=== PATIENT | male | born 1985 | race Hispanic/Latino ===

== ENCOUNTER 2016-12-13 19:50 | Inpatient (IN) | payer OTHER ==
[~2016-12-13 19:50] MED LIST: ISOVUE-370 76%-LOCM 1 ML ONE
[2016-12-13 20:06] LABS: Hematocrit 48.4 % (42.0-52.0); Mean Platelet Volume 8.1 fL (7.4-10.4); Red Blood Cell (RBC) Count 4.77 mill/uL (4.70-6.10); White Blood Cell (WBC) Count 26.5 thou/uL (4.8-10.8)
[2016-12-13 20:10] LABS: Bilirubin Negative (Negative); Blood, Urine Moderate (Negative); Glucose, Urine (Dipstick) Negative (Negative); Ketone, Urine Negative (Negative); Nitrite Negative (Negative); Protein, Urine (Dipstick) 100 mg/dL (Neg-Trace); Urobilinogen 0.2 mg/dL (0.2-1.0)
[2016-12-13 20:11] LABS: PTT 26.4 SEC (22.9-36.1); Prothrombin Time 14.1 SEC (12.0-14.7)
[2016-12-13 20:13] LABS: Bacteria/HPF None Seen HPF (None Seen); Hyaline Casts/LPF 4-6 HYALINE CAST LPF (0-3 Hyaline); Squamous Epithelial 0-3 HPF (0-3)
[2016-12-13 20:18] LABS: ALT (SGPT) 55 U/L (8-55); AST (SGOT) 41 U/L (5-34); Alkaline Phosphatase 135 U/L (40-150); Anion Gap 12 mmol/L (10-20); BUN (Urea Nitrogen) 10 mg/dL (8.9-20.6); Bilirubin, Total 0.3 mg/dL (0.2-1.2); Calc. Creatinine Clearance 0 mL/min (70-130); Calcium 8.5 mg/dL (7.8-10.44); Carbon Dioxide 22 mmol/L (22-29); Chloride 107 mmol/L (98-107); Estimated GFR-MDRD 76; Globulin 3.3 g/dL (2.4-3.5); Protein, Total 7.2 g/dL (6.0-8.3)
[2016-12-13 20:24] LABS: Band 14 % (5-11); Neutrophil 73 % (42-75)
[2016-12-13 20:24] LABS: Renal Epithelial None Seen HPF (0-3); Transitional Epithelial NONE SEEN HPF (0-3)
[2016-12-13] MEDS ORDERED: Lidocaine 1% (PF) 30 ML VIAL ONE (20:41)
[2016-12-13] MEDS ORDERED: Propofol 1,000 MG/100 ML VIAL IV ONE (21:17)
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
[2016-12-13] MEDS ORDERED: Dextrose 5% in Water 1,000 ML IV PRN (21:28)
[2016-12-13] MEDS ORDERED: Ondansetron HCl/PF 4 MG/2 ML Vial IVP PRN (21:28)
[2016-12-13] MEDS ORDERED: Promethazine HCl 25 MG/ML VIAL IM PRN (21:28)
[2016-12-13] MEDS ORDERED: Sedation Protocol FS ONE (21:28)
[2016-12-13] MEDS ORDERED: Dextrose 50% Abboject 50 ML SYRINGE SLOW IVP PRN (21:28)
[2016-12-13] MEDS ORDERED: hydrALAZINE 20 MG/ML VIAL SLOW IVP PRN (21:28)
[2016-12-13] MEDS ORDERED: Lorazepam 2 MG/ML VIAL SLOW IVP PRN (21:33)
[2016-12-13] MEDS ORDERED: DISCONTINUE PREVIOUS NARCOTIC PAIN MEDICATIONS AND BENZODIAZEPINES FS SCH (21:33)
[2016-12-13] MEDS ORDERED: Morphine 4 MG/ML Carpuject SLOW IVP PRN (21:33)
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
[2016-12-13 22:06] LABS: Oxyhemoglobin 95.1 % (94.0-97.0); Sodium 138 mmol/L (135-148)
[2016-12-13 22:07] LABS: Mechanical Tidal Volume 500 ml; Mode SIMV; Modified Allen's Test POSITIVE; Pressure Support 10 cmH2O; Spontaneous Rate 21 min; Vent YES
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
[2016-12-13] MEDS: Propofol 1,000 MG/100 ML VIAL IV PRN (22:18)
[2016-12-13] MEDS: Sodium Chloride 0.9% 1,000 ML IV SCH (22:18)
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
[2016-12-13] MEDS: CEFAZOLIN/Water 2 G/20 ML 2 GM in Premix Bag 1 BAG SLOW IVP SCH (22:32)
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
[2016-12-13] MEDS: Fentanyl 20 MCG/ML 250 ML IVPB SCH (22:51)
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
[2016-12-13] MEDS ORDERED: Sodium Chloride 0.9% 1,000 ML IV SCH (23:15)
[2016-12-13 23:25] LABS: Sodium 140 mmol/L (135-148)
[2016-12-13 23:26] LABS: Mechanical Tidal Volume 500 ml; Mode SIMV; Pressure Support 10 cmH2O; Vent YES
[2016-12-13] MEDS: Norepinephrine 8 MG/250 ML BAG IVPB PRN (23:41)
[2016-12-14] MEDS: HumaLOG 300 UNITS/3 ML VIAL SC PRN ×3 (00:11→12:41)
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
[2016-12-14] MEDS: CEFAZOLIN/Water 2 G/20 ML 2 GM in Premix Bag 1 BAG SLOW IVP SCH ×3 (05:15→21:23)
[2016-12-14 05:16] LABS: Anion Gap 10 mmol/L (10-20); BUN (Urea Nitrogen) 12 mg/dL (8.9-20.6); Calc. Creatinine Clearance 135 mL/min (70-130); Carbon Dioxide 23 mmol/L (22-29); Chloride 109 mmol/L (98-107); Estimated GFR-MDRD 76
[2016-12-14 05:30] LABS: Band 42 % (5-11); Hematocrit 42.7 % (42.0-52.0); Mean Platelet Volume 7.6 fL (7.4-10.4); Neutrophil 48 % (42-75); Red Blood Cell (RBC) Count 4.41 mill/uL (4.70-6.10); White Blood Cell (WBC) Count 25.9 thou/uL (4.8-10.8)
[2016-12-14] MEDS: Sodium Chloride 0.9% 1,000 ML IV SCH ×3 (05:30→18:18)
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
[2016-12-14 07:31] LABS: Mechanical Tidal Volume 500 ml; Modified Allen's Test POSITIVE; Oxyhemoglobin 96.2 % (94.0-97.0); Pressure Support 10 cmH2O; Sodium 138 mmol/L (135-148); Vent YES
[2016-12-14 07:32] LABS: Mode SIMV
[2016-12-14] MEDS ORDERED: Calcium Chloride 1 GM/10 ML Abboject SYRINGE IVP SCH (08:15)
[2016-12-14] MEDS: Famotidine/PF 20 mg/2ml Vial SLOW IVP SCH ×2 (08:40→21:11)
[2016-12-14] MEDS ORDERED: FLU VACC QS2017-18 36 mo. & older 0.5 ML SYRINGE IM ONE (09:00)
[2016-12-14] MEDS ORDERED: Acetaminophen 1,000 MG in Premix Bag 1 BAG IVPB PRN (09:08)
--- NOTE | 2016-12-14 09:20 | RAD ---
SINGLE VIEW OF THE CHEST: 12/14/16 COMPARISON: 12/13/16 HISTORY: Chest tube placement. FINDINGS: Single view of the chest shows an enlarged but stable cardiomediastinal silhouette. The lines and tu bes are in place in position. No obvious pneumothorax is seen. There is air along the right chest wa ll. IMPRESSION: Stable exam. POS: [facility]
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
[2016-12-14] MEDS: Propofol 1,000 MG/100 ML VIAL IV PRN (18:18)
--- NOTE | 2016-12-14 19:09 | RAD ---
PORTABLE CHEST 1 VIEW: Date: 12/14/16 Time: 1807 hours HISTORY: Chest tube placement, follow-up pneumothorax. FINDINGS: Comparison made with earlier exam at 0434 hours from the same date. The lines and tubes are otherwise stable. There is increased subcutaneous emphysema on the current e xam noted on both sides of the neck and the right lateral chest wall. Though a small pneumothorax ca nnot be excluded on this study, no significant sized pneumothorax is seen. POS: [facility]
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
[2016-12-14] MEDS ORDERED: manNITOL 20% 250 ML IVPB SCH (20:30)
[2016-12-14] MEDS ORDERED: Vecuronium 10 MG VIAL ONE (21:15)
[2016-12-14] MEDS ORDERED: Vecuronium 10 MG VIAL IV SCH (21:30)
[2016-12-14] MEDS ORDERED: Sterile Water 10 ML VIAL IVP SCH (21:30)
[2016-12-14] MEDS ORDERED: manNITOL 20% 250 ML IVPB PRN (21:30)
[2016-12-14] MEDS ORDERED: Midazolam HCl 2 mg/2 ml Vial IVP SCH (22:00)
[2016-12-14] MEDS ORDERED: hydrALAZINE 20 MG/ML VIAL SLOW IVP PRN (22:12)
[2016-12-14] MEDS ORDERED: Acetaminophen 1,000 MG in Premix Bag 1 BAG IVPB SCH (22:15)
[2016-12-14] MEDS ORDERED: Midazolam HCl 2 mg/2 ml Vial SLOW IVP PRN (22:53)
[2016-12-15 00:40] LABS: Anion Gap 11 mmol/L (10-20); BUN (Urea Nitrogen) 11 mg/dL (8.9-20.6); Calc. Creatinine Clearance 178 mL/min (70-130); Calcium 8.7 mg/dL (7.8-10.44); Carbon Dioxide 21 mmol/L (22-29); Chloride 108 mmol/L (98-107); Estimated GFR-MDRD Greater than 90; Magnesium 1.7 mg/dL (1.6-2.6)
[2016-12-15 00:49] LABS: Phosphorus 1.6 mg/dL (2.3-4.7)
[2016-12-15] MEDS ORDERED: Magnesium Sulfate 4 GM in Sodium Chloride 0.9% 250 ML 250 ML IVPB SCH (01:30)
[2016-12-15] MEDS ORDERED: Potassium Phosphate 30 MMOL in Sodium Chloride 0.9% 500 ML IVPB SCH (01:30)
[2016-12-15] MEDS: Sodium Chloride 0.9% 1,000 ML IV SCH ×3 (01:48→17:28)
[2016-12-15] MEDS: Propofol 1,000 MG/100 ML VIAL IV PRN ×2 (01:54→17:23)
[2016-12-15] MEDS: Norepinephrine 8 MG/250 ML BAG IVPB PRN (01:54)
[2016-12-15 04:29] LABS: Anion Gap 9 mmol/L (10-20); BUN (Urea Nitrogen) 11 mg/dL (8.9-20.6); Calc. Creatinine Clearance 0 mL/min (70-130); Calcium 8.4 mg/dL (7.8-10.44); Carbon Dioxide 21 mmol/L (22-29); Chloride 110 mmol/L (98-107); Estimated GFR-MDRD Greater than 90; Magnesium 2.6 mg/dL (1.6-2.6)
[2016-12-15 04:33] LABS: Phosphorus 1.9 mg/dL (2.3-4.7)
[2016-12-15] MEDS: CEFAZOLIN/Water 2 G/20 ML 2 GM in Premix Bag 1 BAG SLOW IVP SCH ×3 (05:09→21:21)
[2016-12-15 07:19] LABS: Modified Allen's Test NOT DONE; Sodium 139 mmol/L (135-148); Vent YES
[2016-12-15 07:20] LABS: Mechanical Tidal Volume 500 ml; Mode SIMV/PSV; Pressure Support 10 cmH2O
[2016-12-15] MEDS ORDERED: Sodium Phosphate 30 MMOL in Sodium Chloride 0.9% 250 ML 250 ML IVPB SCH (09:00)
[2016-12-15] MEDS: Famotidine/PF 20 mg/2ml Vial SLOW IVP SCH ×2 (09:21→21:21)
[2016-12-15] MEDS: HumaLOG 300 UNITS/3 ML VIAL SC PRN ×2 (09:27→16:10)
[2016-12-15] MEDS: manNITOL 20% 250 ML IVPB SCH ×3 (09:45→21:26)
--- NOTE | 2016-12-15 11:12 | RAD ---
PORTABLE AP CHEST XRAY: DATE: 12/15/16. HISTORY: Followup evaluation. Intubated. Chest tube in place. COMPARISON: 12/14/16. FINDINGS: Right-sided thoracostomy tube remains in place and unchanged in position. The most proximal sidehol e is not well visualized due to overlying ribs. Endotracheal tube, nasogastric tube, and right subc lavian central venous catheter remain in place and unchanged in position. This is exam is obtained in the excretory phase of imaging resulting in accentuation of the cardiac silhouette and bronchovas cular markings. There is a lucency seen at the medial right lung base, and a small pneumothorax med ially could not be entirely excluded, and this may be related to better parenchymal lung changes at the lateral right lung base with aerated lung adjacent to the cardiac silhouette. There are parench ymal changes at the left lung base probably related to atelectasis. Subcutaneous emphysema is seen about the chest bilaterally. No other interval change. IMPRESSION: Bibasilar parenchymal changes probably related to atelectasis and/or contusion. Aspiration pneumoni tis cannot be entirely excluded. There is lucency seen at the medial right lung base which is proba guerline related to minimal aerated lung with adjacent opacification of the lateral right lung base. POS: [facility]
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
[2016-12-15] MEDS ORDERED: Acetaminophen 500 MG TAB PO PRN (14:13)
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
[2016-12-15] MEDS ORDERED: Acetaminophen 500 MG TAB PO SCH (18:00)
[2016-12-16] MEDS: HumaLOG 300 UNITS/3 ML VIAL SC PRN (01:38)
[2016-12-16] MEDS: manNITOL 20% 250 ML IVPB SCH ×4 (03:22→20:38)
[2016-12-16] MEDS: Sodium Chloride 0.9% 1,000 ML IV SCH ×2 (03:27→09:29)
[2016-12-16 04:45] LABS: #Eosinphils 0.1 thou/uL (0.0-0.7); #Lymphocytes 0.7 thou/uL (1.20-3.40); #Neutrophils 9.5 thou/uL (1.40-6.50); %Basophils 0.2 % (0.0-1.0); %Eosinophils 0.7 % (0.0-10.0); %Lymphocytes 6.4 % (21.0-51.0); %Monocytes 8.5 % (0.0-10.0); Hematocrit 26.8 % (42.0-52.0); Mean Platelet Volume 7.6 fL (7.4-10.4); Red Blood Cell (RBC) Count 2.71 mill/uL (4.70-6.10); White Blood Cell (WBC) Count 11.3 thou/uL (4.8-10.8)
[2016-12-16 05:03] LABS: Anion Gap 6 mmol/L (10-20); BUN (Urea Nitrogen) 11 mg/dL (8.9-20.6); Calc. Creatinine Clearance 0 mL/min (70-130); Calcium 8.1 mg/dL (7.8-10.44); Carbon Dioxide 27 mmol/L (22-29); Chloride 107 mmol/L (98-107); Estimated GFR-MDRD Greater than 90; Magnesium 1.8 mg/dL (1.6-2.6)
[2016-12-16 05:08] LABS: Phosphorus 1.6 mg/dL (2.3-4.7)
[2016-12-16] MEDS ORDERED: Potassium Phosphate 12 MMOL in Sodium Chloride 0.9% 250 ML 250 ML IV PRN (05:43)
[2016-12-16] MEDS ORDERED: CCU ELECTROLYTE REPLACEMENT PROTOCOL FS PRN (05:43)
[2016-12-16] MEDS ORDERED: Potassium Phosphate 9 MMOL in Sodium Chloride 0.9% 100 ML IVPB PRN (05:43)
[2016-12-16] MEDS ORDERED: Potassium Chloride 20 MEQ TAB PO PRN (05:43)
[2016-12-16] MEDS ORDERED: Potassium Phosphate 15 MMOL in Sodium Chloride 0.9% 250 ML 250 ML IV PRN (05:43)
[2016-12-16] MEDS ORDERED: Magnesium Oxide 400 MG TAB PO PRN ×2 (05:43)
[2016-12-16] MEDS ORDERED: Magnesium 2 GM/NS 0.9% 100 ML 2 GM in Premix Bag 1 BAG IVPB PRN (05:43)
[2016-12-16] MEDS ORDERED: Potassium Chloride 40 MEQ in Sodium Chloride 0.9% 250 ML 250 ML IVPB PRN (05:43)
[2016-12-16] MEDS ORDERED: Potassium Chloride 40 MEQ in Premix Bag 1 BAG IVPB PRN (05:43)
[2016-12-16] MEDS: CEFAZOLIN/Water 2 G/20 ML 2 GM in Premix Bag 1 BAG SLOW IVP SCH ×3 (06:26→21:22)
[2016-12-16 08:04] LABS: Sodium 141 mmol/L (135-148)
[2016-12-16 08:05] LABS: Mechanical Tidal Volume 500 ml; Mode SIMV/PSV; Modified Allen's Test NOT DONE; Pressure Support 10 cmH2O; Vent YES
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
--- NOTE | 2016-12-16 08:58 | PRG ---
DATE OF SERVICE: 12/16/2016 NEUROSURGERY PROGRESS NOTE SUBJECTIVE: Mr. Torres has been sedated and intubated yesterday. His ICPs have been in the teen s with a small exception of before he gets a bolus of mannitol. At times, when the bolus is coming due and he needs to be rolled from one side to the other for care, his ICPs have been up. He immedi ately responds to mannitol bolusing. His serum sodium and serum osmolality have not reached the poi nt where we maximize medical therapy yet, but his ICP is well controlled. Mr. Torres is not getting neuro checks currently. He is getting IV fluids at a significant rate of 125 mL an hour on top of tube feeds, which are 40 mL an hour and propofol at 7 mL an hour. My plan today is to decrease the fluid intake, 175 or more mL per hour seems high. I will drop the IV fluid to 30 mL an hour. His boluses of mannitol seem to be working at the current dose. There i s room to go up in dose should ICP become an issue over the next 24 hours. This evening, he will re ach his 72-hour typical plateau for swelling. Hopefully, thereafter he will slowly improve and not require mannitol boluses over time. We will start neuro checks tomorrow at least q.12 hours. I am hopeful the bolt can be removed sometime on Sunday.
[2016-12-16] MEDS: Propofol 1,000 MG/100 ML VIAL IV PRN ×2 (09:23→17:14)
[2016-12-16] MEDS: Famotidine/PF 20 mg/2ml Vial SLOW IVP SCH ×2 (09:28→20:38)
--- NOTE | 2016-12-16 09:38 | RAD ---
CHEST 1 VIEW: HISTORY: Chest tube. COMPARISON: Chest 1 view 12/15/16. FINDINGS: Endotracheal tube tip at the level of the clavicles. Enteric tube tip below the diaphragm, although out of field of view. Thoracostomy tube on the right is similar. Patchy opacity is similar. Cardiac silhouette is simila r. Central venous catheter is similar. Subcutaneous emphysema right hemithorax as well as the neck bilaterally is similar. No large apical pneumothorax on the left. Right medial lung base lucency is again seen and likely a small pneumothorax. IMPRESSION: No significant change in radiographic appearance of the chest. POS: [facility]
[2016-12-16] MEDS ORDERED: Sterile Water 10 ML VIAL IVP SCH (14:29)
[2016-12-16] MEDS ORDERED: Activase 2 MG VIAL CATH SCH (14:29)
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
[2016-12-17 00:47] LABS: Sodium 143 mmol/L (135-148)
[2016-12-17 00:48] LABS: Mechanical Tidal Volume 500 ml; Mode SIMV; Modified Allen's Test POSITIVE; Pressure Support 10 cmH2O; Vent YES
[2016-12-17] MEDS: manNITOL 20% 250 ML IVPB SCH ×4 (03:35→21:29)
[2016-12-17] MEDS: Acetaminophen 325 MG/10.15 ML UDCUP PO PRN (03:57)
[2016-12-17] MEDS: CEFAZOLIN/Water 2 G/20 ML 2 GM in Premix Bag 1 BAG SLOW IVP SCH (05:07)
[2016-12-17 07:59] LABS: #Eosinphils 0.2 thou/uL (0.0-0.7); #Lymphocytes 1.6 thou/uL (1.20-3.40); #Monocytes 1.4 thou/uL (0.11-0.59); #Neutrophils 7.4 thou/uL (1.40-6.50); %Basophils 0.1 % (0.0-1.0); %Eosinophils 1.8 % (0.0-10.0); %Lymphocytes 15.2 % (21.0-51.0); %Monocytes 12.9 % (0.0-10.0); Hematocrit 27.2 % (42.0-52.0); Mean Platelet Volume 7.8 fL (7.4-10.4); Red Blood Cell (RBC) Count 2.72 mill/uL (4.70-6.10); White Blood Cell (WBC) Count 10.6 thou/uL (4.8-10.8)
[2016-12-17] MEDS: Sodium Chloride 0.9% 1,000 ML IV SCH (08:00)
[2016-12-17 08:16] LABS: Anion Gap 11 mmol/L (10-20); BUN (Urea Nitrogen) 13 mg/dL (8.9-20.6); Calc. Creatinine Clearance 201 mL/min (70-130); Calcium 8.5 mg/dL (7.8-10.44); Carbon Dioxide 29 mmol/L (22-29); Chloride 108 mmol/L (98-107); Estimated GFR-MDRD Greater than 90; Phosphorus 3.1 mg/dL (2.3-4.7)
[2016-12-17 08:38] LABS: Sodium 144 mmol/L (135-148)
[2016-12-17 08:39] LABS: Mechanical Tidal Volume 500 ml; Mode SIMV/PSV; Modified Allen's Test NOT DONE; Pressure Support 10 cmH2O; Vent YES
[2016-12-17] MEDS: Famotidine/PF 20 mg/2ml Vial SLOW IVP SCH ×2 (08:52→20:26)
--- NOTE | 2016-12-17 09:19 | RAD ---
CHEST 1 VIEW: HISTORY: Hypoxia. COMPARISON: Chest 1 view prior day. FINDINGS: Thoracostomy tube is similar. Perihilar and lower lobe opacities are similar. Central venous catheter tip sits at the right atrium. Heart size is enlarged. Trace right apical pneumothorax. IMPRESSION: No significant change in the radiographic appearance of the chest. POS: [facility]
--- NOTE | 2016-12-17 09:52 | PRG ---
DATE OF SERVICE: 12/17/2016 NEUROSURGERY PROGRESS NOTE SUBJECTIVE: I saw Mr. Torres in ICU room this morning. Yesterday, we made adjustments to his to ghassan fluid in which significantly helped his ICP. He was getting 175-180 mL an hour and total fluid in, so we dropped his IV fluids. His sodium has responded nicely and his ICPs are very well control led. Overnight, the nurses report that at around 3:00 a.m., he bit on his endotracheal tube, it was tough to get him oxygenated. I gave a bolus of propofol, but is very slow to recover his oxygenation. H is FIO2 went up to 70%, PEEP was added. In spite of the added PEEP, the ICP remained well controlle d. I am seeing him this morning and his sats are in the 90s. His ICP trend is quite good. He had a co uple of episodes when it was 20-25, but those are extremely brief, the majority of ICPs in ICU recor ded are in the single digits. His neurological examination is unchanged. I did not lower the propofol given the trouble with the endotracheal tube. The sodium is ranging now between 140-144. Those numbers were taken just before each bolus of lonny kalpana. Most pressing issue today is the lungs. He has quite significant amount of PEEP and FiO2. We will have pulmonary join the case to see if they can make some adjustments to help with oxygenation and v entilation. We will slowly back off of mannitol. With the ICPs remain in the single digits for ano ther 24 hours, I think we can safely remove the intracranial pressure monitor in the early part of t his week.
[2016-12-17] MEDS: Propofol 1,000 MG/100 ML VIAL IV PRN ×2 (10:12→20:25)
[2016-12-17 14:29] LABS: Modified Allen's Test NOT DONE; Sodium 145 mmol/L (135-148); Vent YES
[2016-12-17 14:30] LABS: Mode BILEVEL LOW 12; Pressure Support 10 cmH2O
[2016-12-17] MEDS: cefTRIAXone\\ROCEPHIN 2 GM, Admixture Fee 1 EACH in Sodium Chloride 0.9% 100 ML IVPB SCH (15:00)
[2016-12-17] MEDS: Fentanyl 20 MCG/ML 250 ML IVPB SCH (15:12)
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
--- NOTE | 2016-12-17 17:16 | PRG ---
DATE OF SERVICE: 12/17/2016 Mr. Torres is a 31-year-old male who I saw in his room this morning at 08:10. His neurologic exa m is unchanged from yesterday. There are no new neurologic deficits on exam. He continues to flex his arms inward and his legs inward towards the body when pain is elicited to the upper or lower ext remities. His pupils are equal and minimally reactive to light at 1 mm. Overnight, the patient cla mped down on his ET tube and his sats strapped to the 40s. Respiratory was called and after adjusti ng vent settings, we were able to get his sats back into the 70s. However, this morning on his x-ra y of the chest it is maryann out. I will have status controller on his case so that he can do vent manag ement. His vital signs overnight have been stable other than the decreased in sat for intermittent period of time. If there are any further questions, please feel free to contact Neurosurgery.
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
[2016-12-18 02:27] LABS: #Eosinphils 0.2 thou/uL (0.0-0.7); #Lymphocytes 1.1 thou/uL (1.20-3.40); #Monocytes 0.8 thou/uL (0.11-0.59); #Neutrophils 6.2 thou/uL (1.40-6.50); %Basophils 0.2 % (0.0-1.0); %Eosinophils 2.2 % (0.0-10.0); %Lymphocytes 13.5 % (21.0-51.0); %Monocytes 9.7 % (0.0-10.0); Hematocrit 26.4 % (42.0-52.0); Mean Platelet Volume 7.4 fL (7.4-10.4); Red Blood Cell (RBC) Count 2.62 mill/uL (4.70-6.10); White Blood Cell (WBC) Count 8.3 thou/uL (4.8-10.8)
[2016-12-18 02:54] LABS: Anion Gap 9 mmol/L (10-20); BUN (Urea Nitrogen) 18 mg/dL (8.9-20.6); Calc. Creatinine Clearance 212 mL/min (70-130); Calcium 8.9 mg/dL (7.8-10.44); Carbon Dioxide 31 mmol/L (22-29); Chloride 108 mmol/L (98-107); Estimated GFR-MDRD Greater than 90; Phosphorus 3.6 mg/dL (2.3-4.7)
[2016-12-18] MEDS: manNITOL 20% 250 ML IVPB SCH ×2 (03:49→11:10)
[2016-12-18] MEDS: Sodium Chloride 0.9% 1,000 ML IV SCH (03:51)
[2016-12-18] MEDS: Propofol 1,000 MG/100 ML VIAL IV PRN ×2 (04:43→20:44)
[2016-12-18] MEDS: Senokot S 8.6-50 MG TAB PO SCH ×3 (05:47→20:45)
[2016-12-18 06:45] LABS: Modified Allen's Test NOT DONE; Sodium 144 mmol/L (135-148); Vent YES
[2016-12-18 06:46] LABS: Mode BILEVEL LOW 12; Pressure Support 10 cmH2O
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
[2016-12-18] MEDS ORDERED: Furosemide 40 MG/4 ML VIAL ONE (09:28)
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
[2016-12-18] MEDS: Famotidine/PF 20 mg/2ml Vial SLOW IVP SCH (11:10)
[2016-12-18] MEDS: Polyethylene Glycol 3350 17 GM Packet PO SCH (11:11)
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
--- NOTE | 2016-12-18 13:39 | PRG ---
DATE OF SERVICE: 12/18/2016 OBJECTIVE: VITAL SIGNS: Pulse 85, blood pressure 116/76, saturation is 90%. His I's and O's are even. CHEST: Reveals bilateral rhonchi and crackles. CARDIAC: S1 and S2. ABDOMEN: No masses. IMAGING AND LABORATORY DATA: His x-ray shows much improvement in his diffuse infiltrates. He has l arge amount of frothy bloody secretions from his ET tube. White count 8,000, hemoglobin 8, hematocr it 26, platelet count 163. PO2 is 96, pCO2 38, pH 7.46 on bilevel. Electrolytes are normal. IMPRESSION: Respiratory failure, lung contusion, acute respiratory distress syndrome. PLAN: Vent is being adjusted, may consider a diagnostic bronchoscopy as well as await cultures, stu scalate antibiotics, continue nutrition and PT, eventually tracheostomy and a PEG. One hour of critical care time.
[2016-12-18] MEDS: cefTRIAXone\\ROCEPHIN 2 GM, Admixture Fee 1 EACH in Sodium Chloride 0.9% 100 ML IVPB SCH (13:48)
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
--- NOTE | 2016-12-18 16:10 | CT ---
NONCONTRAST HEAD CT: HISTORY: Followup intracranial hemorrhage. COMPARISON: 12/13/2016 TECHNIQUE: A noncontrast head CT is performed from the skull base to the skull vertex. FINDINGS: Redemonstration of bilateral, predominantly frontal lobe parenchymal hematomas. There is interval d evelopment of hypoattenuation, suggesting components of edema. The largest parenchymal hematoma remi sures 0.6 x 1.7 cm and is in the right frontal lobe. No new areas of parenchymal hemorrhage are kevin reciated. Small amounts of ventricular hemorrhage are again demonstrated. The degree of ventricula r hemorrhage has decreased when compared to the prior exam. A small focus of subarachnoid hemorrhag e along the medial right frontal lobe may be present. The basilar cisterns are patent. No midline shift. The calvarium is intact. Adequate aeration of the mastoid air cells. Left sphenoid sinus and right sphenoid sinus disease, as well as partial opacification of the posterior ethmoid air cells. IMPRESSION: Redemonstration of intracranial hemorrhage. The degree of hemorrhage has slightly decreased. Murtaza nued surveillance. POS: [facility]
[2016-12-18] MEDS: Enoxaparin Sodium 40 MG/0.4 ML SYRINGE SC SCH (20:45)
[2016-12-18] MEDS: Famotidine 20 MG TAB PER TUBE SCH (20:45)
[2016-12-18] MEDS: Acetaminophen 325 MG/10.15 ML UDCUP PO PRN (20:59)
[2016-12-19] MEDS: Acetaminophen 325 MG/10.15 ML UDCUP PO PRN ×2 (04:19→20:10)
[2016-12-19] MEDS: Sodium Chloride 0.9% 1,000 ML IV SCH (04:26)
[2016-12-19] MEDS: Propofol 1,000 MG/100 ML VIAL IV PRN (07:57)
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
--- NOTE | 2016-12-19 08:59 | RAD ---
SEMI UPRIGHT FRONTAL CHEST RADIOGRAPH: Date: 12-19-16 Comparison: 12-18-16 History: Evaluate chest tube. FINDINGS: There is an endotracheal tube in place, its distal tip terminating at the region of the clavicular h shahana. Nasogastric tube extends into left upper quadrant. Right sided vascular catheter present, dist al tip in the region of the right atrium. There is a right sided chest tube overlying the lateral as pect of the right lung base. There is hazy pulmonary parenchymal opacity in bilateral lung bases, ri ght greater than left, stable. No discrete pneumothorax seen on either side. Small volume subcutaneo us emphysema noted within the inferior lateral right chest wall, stable. IMPRESSION: Stable appearance of the chest as described above. POS: [facility]
[2016-12-19] MEDS: Senokot S 8.6-50 MG TAB PO SCH ×2 (10:55→20:11)
[2016-12-19] MEDS: Famotidine 20 MG TAB PER TUBE SCH ×2 (10:55→20:11)
[2016-12-19] MEDS: Polyethylene Glycol 3350 17 GM Packet PO SCH (10:55)
[2016-12-19] MEDS: Bisacodyl 10 MG SUPP PR SCH (10:56)
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
[2016-12-19] MEDS: cloNIDine 0.1 MG TAB PO SCH ×2 (11:44→18:40)
[2016-12-19] MEDS: cefTRIAXone\\ROCEPHIN 2 GM, Admixture Fee 1 EACH in Sodium Chloride 0.9% 100 ML IVPB SCH (14:39)
[2016-12-19] MEDS: Enoxaparin Sodium 40 MG/0.4 ML SYRINGE SC SCH (20:11)
[2016-12-20] MEDS: cloNIDine 0.1 MG TAB PO SCH ×6 (00:56→23:42)
[2016-12-20] MEDS: Acetaminophen 325 MG/10.15 ML UDCUP PO PRN (01:37)
[2016-12-20] MEDS ORDERED: Lidocaine 1% w/Epinephrine 1:200K 30 ML VIAL FS PRN (07:54)
[2016-12-20] MEDS ORDERED: Fentanyl 100 MCG/2 ML VIAL SLOW IVP PRN ×2 (07:56)
[2016-12-20] MEDS ORDERED: Midazolam HCl 2 mg/2 ml Vial IVP PRN (07:56)
[2016-12-20] MEDS ORDERED: Vecuronium 10 MG VIAL IV SCH (08:00)
[2016-12-20] MEDS: Midazolam HCl 2 mg/2 ml Vial IVP PRN ×2 (09:05→09:40)
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
[2016-12-20] MEDS ORDERED: CEFAZOLIN/Water 2 GM/20 ML SYRINGE SLOW IVP SCH (09:45)
[2016-12-20] MEDS ORDERED: CEFAZOLIN 1 GM VIAL SLOW IVP SCH (09:45)
--- NOTE | 2016-12-20 10:24 | RAD ---
PORTABLE CHEST ONE VIEW: History: Time: 5:41 a.m. History: Respiratory failure. Chest tube. FINDINGS: Comparison made with exam from the previous day. There is a patchy opacity in the left lower lung which appears slightly worse compared to the previo us study. The remainder of the exam is otherwise stable. No significant interval change is seen. POS: [facility]
[2016-12-20] MEDS: Sodium Chloride 0.9% 1,000 ML IV SCH (11:27)
[2016-12-20] MEDS: Famotidine 20 MG TAB PER TUBE SCH ×2 (11:31→20:42)
[2016-12-20] MEDS: Polyethylene Glycol 3350 17 GM Packet PO SCH (11:31)
[2016-12-20] MEDS: Senokot S 8.6-50 MG TAB PO SCH ×2 (11:31→20:42)
[2016-12-20] MEDS: Bisacodyl 10 MG SUPP PR SCH (11:32)
[2016-12-20] MEDS: cefTRIAXone\\ROCEPHIN 2 GM, Admixture Fee 1 EACH in Sodium Chloride 0.9% 100 ML IVPB SCH (14:35)
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
[2016-12-20] MEDS ORDERED: Morphine 4 MG/ML Carpuject SLOW IVP PRN (16:35)
[2016-12-20] MEDS: HYDROcodone/Acetaminophen 10/325 mg Tablet PO SCH ×2 (17:07→20:42)
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
[2016-12-20] MEDS: Enoxaparin Sodium 40 MG/0.4 ML SYRINGE SC SCH (20:43)
[2016-12-21] MEDS: HYDROcodone/Acetaminophen 10/325 mg Tablet PO SCH ×6 (00:08→20:24)
[2016-12-21] MEDS: Sodium Chloride 0.9% 1,000 ML IV SCH (01:50)
[2016-12-21] MEDS: cloNIDine 0.1 MG TAB PO SCH ×3 (05:38→17:10)
--- NOTE | 2016-12-21 08:26 | RAD ---
PORTABLE CHEST: History: Chest tube follow up. Comparison: 12-20-16 FINDINGS/IMPRESSION: Right chest tube is unchanged. Patchy atelectasis and/or infiltrate in the right lung base again not ed. Hazy infiltrate in the left lung base also again noted. Tracheostomy device has been placed. NG tube has been removed. Lung page do not appear significantly changed. POS: [facility]
[2016-12-21] MEDS: Famotidine 20 MG TAB PER TUBE SCH ×2 (08:28→20:25)
[2016-12-21] MEDS: Senokot S 8.6-50 MG TAB PO SCH ×2 (08:29→20:36)
[2016-12-21] MEDS: Polyethylene Glycol 3350 17 GM Packet PO SCH (08:29)
[2016-12-21] MEDS: Bisacodyl 10 MG SUPP PR SCH (08:29)
[2016-12-21] MEDS: Amantadine HCl 100 mg Capsule PO SCH (10:02)
--- NOTE | 2016-12-21 10:31 | PRG ---
DATE OF SERVICE: 12/21/2016 Mr. Torres underwent tracheostomy and PEG tube placement yesterday. [facility] He remains a GCS 6T (E2, M3-decorticate posturing in the right upper extremity decerebrate postu ring otherwise, V1T). He appears to be again improved compared to admission from a [facility]surgical [facility].
[2016-12-21] MEDS: cefTRIAXone\\ROCEPHIN 2 GM, Admixture Fee 1 EACH in Sodium Chloride 0.9% 100 ML IVPB SCH (13:14)
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
[2016-12-21] MEDS ORDERED: SMX/TMP 800-160mg/20 ML UDCUP PO SCH (16:30)
[2016-12-21] MEDS ORDERED: Cefepime 2 GM in Sodium Chloride 0.9% 100 ML IVPB SCH (18:00)
[2016-12-21] MEDS: Cefepime 2 GM in Sodium Chloride 0.9% 100 ML IVPB SCH (20:00)
[2016-12-21] MEDS: Enoxaparin Sodium 40 MG/0.4 ML SYRINGE SC SCH (20:25)
[2016-12-21] MEDS: SMX/TMP 800-160mg/20 ML UDCUP PO SCH (20:25)
[2016-12-22] MEDS: cloNIDine 0.1 MG TAB PO SCH ×5 (00:19→23:45)
[2016-12-22] MEDS: HYDROcodone/Acetaminophen 10/325 mg Tablet PO SCH ×7 (00:20→23:46)
[2016-12-22 05:00] LABS: Anion Gap 13 mmol/L (10-20); BUN (Urea Nitrogen) 25 mg/dL (8.9-20.6); Calc. Creatinine Clearance 217 mL/min (70-130); Calcium 8.8 mg/dL (7.8-10.44); Carbon Dioxide 25 mmol/L (22-29); Chloride 104 mmol/L (98-107); Estimated GFR-MDRD Greater than 90; Magnesium 2.3 mg/dL (1.6-2.6); Phosphorus 3.3 mg/dL (2.3-4.7)
[2016-12-22 05:36] LABS: Band 9 % (5-11); Hematocrit 31.4 % (42.0-52.0); Mean Platelet Volume 7.9 fL (7.4-10.4); Metamyelocyte 1 % (0-0); Myelocyte 1 % (0-0); Neutrophil 66 % (42-75); Polychromasia SLIGHT = 2-3 cells (100X) (0-2/hpf); Reactive Lymphocytes 1 % (0-10); Red Blood Cell (RBC) Count 3.24 mill/uL (4.70-6.10)
[2016-12-22] MEDS ORDERED: Bisacodyl 10 MG SUPP PR PRN (08:41)
[2016-12-22] MEDS ORDERED: Polyethylene Glycol 3350 17 GM Packet PO PRN (08:42)
[2016-12-22] MEDS: Amantadine HCl 100 mg Capsule PO SCH (09:05)
[2016-12-22] MEDS: Senokot S 8.6-50 MG TAB PO SCH ×2 (09:06→20:12)
[2016-12-22] MEDS: Famotidine 20 MG TAB PER TUBE SCH ×2 (09:06→20:12)
[2016-12-22] MEDS: SMX/TMP 800-160mg/20 ML UDCUP PO SCH ×2 (09:06→20:13)
[2016-12-22] MEDS: Cefepime 2 GM in Sodium Chloride 0.9% 100 ML IVPB SCH (09:20)
--- NOTE | 2016-12-22 09:52 | RAD ---
PORTABLE CHEST 1 VIEW: Date: 12/22/16 Time: 0441 hours HISTORY: Respiratory failure. FINDINGS/IMPRESSION: Comparison made with exam from previous day. Tracheostomy tube remains in place. The right subclavian central line and the right-sided chest tube have been removed in the interim. No pneumothorax is seen. Remainder of exam is otherwise stable. POS: [facility]
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
[2016-12-22] MEDS: Cefepime 2 GM, Admixture Fee 1 EACH in Sodium Chloride 0.9% 100 ML IVPB SCH ×2 (16:26→23:47)
[2016-12-22] MEDS: Enoxaparin Sodium 40 MG/0.4 ML SYRINGE SC SCH (20:14)
[2016-12-23] MEDS: HYDROcodone/Acetaminophen 10/325 mg Tablet PO SCH ×5 (04:07→21:02)
[2016-12-23] MEDS: cloNIDine 0.1 MG TAB PO SCH ×3 (05:12→17:28)
[2016-12-23] MEDS: Senokot S 8.6-50 MG TAB PO SCH ×2 (07:58→21:02)
[2016-12-23] MEDS: Famotidine 20 MG TAB PER TUBE SCH ×2 (07:58→21:02)
[2016-12-23] MEDS: Amantadine HCl 100 mg Capsule PO SCH (07:59)
[2016-12-23] MEDS: Cefepime 2 GM, Admixture Fee 1 EACH in Sodium Chloride 0.9% 100 ML IVPB SCH ×2 (08:04→15:28)
[2016-12-23] MEDS: Acetaminophen 325 MG/10.15 ML UDCUP PO PRN ×2 (08:05→15:26)
[2016-12-23] MEDS: SMX/TMP 800-160mg/20 ML UDCUP PO SCH ×2 (08:05→21:04)
--- NOTE | 2016-12-23 08:28 | RAD ---
CHEST 1 VIEW: Date: 12/23/16 COMPARISON: 12/22/16. HISTORY: Chest tube. FINDINGS: Redemonstration of a tracheostomy, unchanged. Stable opacification of the lung parenchyma. Stable ca rdiac silhouette. No pneumothorax. IMPRESSION: No significant interval change. No radiographic evidence of a chest tube. POS: [facility]
[2016-12-23 10:31] LABS: Anion Gap 13 mmol/L (10-20); BUN (Urea Nitrogen) 23 mg/dL (8.9-20.6); Calc. Creatinine Clearance 204 mL/min (70-130); Calcium 9.1 mg/dL (7.8-10.44); Carbon Dioxide 23 mmol/L (22-29); Chloride 104 mmol/L (98-107); Estimated GFR-MDRD Greater than 90; Magnesium 2.3 mg/dL (1.6-2.6); Phosphorus 3.4 mg/dL (2.3-4.7)
[2016-12-23 10:48] LABS: Band 1 % (5-11); Hematocrit 31.7 % (42.0-52.0); Mean Platelet Volume 7.6 fL (7.4-10.4); Neutrophil 88 % (42-75); Red Blood Cell (RBC) Count 3.15 mill/uL (4.70-6.10); White Blood Cell (WBC) Count 19.3 thou/uL (4.8-10.8)
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
[2016-12-23] MEDS: Enoxaparin Sodium 40 MG/0.4 ML SYRINGE SC SCH (21:02)
[2016-12-24] MEDS: Cefepime 2 GM, Admixture Fee 1 EACH in Sodium Chloride 0.9% 100 ML IVPB SCH ×3 (00:23→16:16)
[2016-12-24] MEDS: cloNIDine 0.1 MG TAB PO SCH ×4 (00:23→18:24)
[2016-12-24] MEDS: HYDROcodone/Acetaminophen 10/325 mg Tablet PO SCH ×6 (00:24→21:03)
[2016-12-24 04:24] LABS: Anion Gap 12 mmol/L (10-20); BUN (Urea Nitrogen) 19 mg/dL (8.9-20.6); Calc. Creatinine Clearance 210 mL/min (70-130); Calcium 9.3 mg/dL (7.8-10.44); Carbon Dioxide 26 mmol/L (22-29); Chloride 103 mmol/L (98-107); Estimated GFR-MDRD Greater than 90; Magnesium 2.2 mg/dL (1.6-2.6); Phosphorus 3.2 mg/dL (2.3-4.7)
[2016-12-24 04:39] LABS: Band 4 % (5-11); Hematocrit 30.7 % (42.0-52.0); Mean Platelet Volume 7.6 fL (7.4-10.4); Myelocyte 2 % (0-0); Neutrophil 78 % (42-75); Red Blood Cell (RBC) Count 3.04 mill/uL (4.70-6.10); White Blood Cell (WBC) Count 20.7 thou/uL (4.8-10.8)
[2016-12-24] MEDS: Famotidine 20 MG TAB PER TUBE SCH ×2 (08:07→21:06)
[2016-12-24] MEDS: Senokot S 8.6-50 MG TAB PO SCH ×2 (08:07→21:06)
[2016-12-24] MEDS: Amantadine HCl 100 mg Capsule PO SCH (08:08)
--- NOTE | 2016-12-24 09:00 | RAD ---
1 VIEW CHEST: Date: 12/24/16 HISTORY: Chest tube. COMPARISON: 12/23/16. FINDINGS: Stable tracheostomy. Chest tube is not appreciated. Slightly worsening opacification of lung parench yma. No pneumothorax. IMPRESSION: Worsening lung parenchymal opacification. POS: [facility]
[2016-12-24] MEDS: SMX/TMP 800-160mg/20 ML UDCUP PO SCH ×2 (09:36→21:06)
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
[2016-12-24] MEDS: Enoxaparin Sodium 40 MG/0.4 ML SYRINGE SC SCH (21:07)
[2016-12-25] MEDS: Cefepime 2 GM, Admixture Fee 1 EACH in Sodium Chloride 0.9% 100 ML IVPB SCH ×2 (00:44→09:17)
[2016-12-25] MEDS: cloNIDine 0.1 MG TAB PO SCH ×5 (00:44→23:54)
[2016-12-25] MEDS: HYDROcodone/Acetaminophen 10/325 mg Tablet PO SCH ×6 (00:51→22:13)
[2016-12-25 06:53] LABS: Band 4 % (5-11); Hematocrit 29.4 % (42.0-52.0); Mean Platelet Volume 7.7 fL (7.4-10.4); Metamyelocyte 1 % (0-0); Neutrophil 72 % (42-75); Red Blood Cell (RBC) Count 2.92 mill/uL (4.70-6.10); White Blood Cell (WBC) Count 14.8 thou/uL (4.8-10.8)
[2016-12-25] MEDS ORDERED: Midazolam HCl 2 mg/2 ml Vial SLOW IVP SCH (08:30)
[2016-12-25] MEDS ORDERED: Fentanyl 100 MCG/2 ML VIAL SLOW IVP SCH (08:30)
[2016-12-25] MEDS ORDERED: Cefepime 2 GM, Syringe 2.5 ML in Sterile Water 10 ML SLOW IVP SCH (08:45)
[2016-12-25] MEDS: SMX/TMP 800-160mg/20 ML UDCUP PO SCH ×2 (09:14→22:14)
[2016-12-25] MEDS: Amantadine HCl 100 mg Capsule PO SCH (09:14)
[2016-12-25] MEDS: Polyethylene Glycol 3350 17 GM Packet PO SCH (09:15)
[2016-12-25] MEDS: Bisacodyl 10 MG SUPP PR SCH (09:15)
[2016-12-25] MEDS: Famotidine 20 MG TAB PER TUBE SCH ×2 (09:17→22:13)
[2016-12-25] MEDS: Senokot S 8.6-50 MG TAB PO SCH ×2 (09:17→22:13)
--- NOTE | 2016-12-25 09:59 | RAD ---
PORTABLE SEMIUPRIGHT FRONTAL CHEST RADIOGRAPH: 12/25/2016 HISTORY: Chest tube. COMPARISON: 12/24/2016 FINDINGS: There is a stable tracheostomy tube present. No chest tube is noted. Shallow inspiration limits ev aluation of the perihilar regions in both lung bases. Hazy nonspecific pulmonary parenchymal opacit y is noted in the bilateral perihilar regions, in both lung bases, left greater than right, not sign ificantly changed. IMPRESSION: Stable appearance of the chest. POS: [facility]
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
[2016-12-25] MEDS: Cefepime 2 GM, Syringe 2.5 ML in Sterile Water 10 ML SLOW IVP SCH ×2 (16:55→23:56)
[2016-12-25] MEDS: Enoxaparin Sodium 40 MG/0.4 ML SYRINGE SC SCH (22:14)
[2016-12-26] MEDS: HYDROcodone/Acetaminophen 10/325 mg Tablet PO SCH ×6 (00:45→20:26)
[2016-12-26] MEDS: cloNIDine 0.1 MG TAB PO SCH ×3 (05:09→17:24)
[2016-12-26 05:26] LABS: Band 1 % (5-11); Hematocrit 29.2 % (42.0-52.0); Mean Platelet Volume 7.6 fL (7.4-10.4); Metamyelocyte 1 % (0-0); Myelocyte 1 % (0-0); Neutrophil 75 % (42-75); Polychromasia SLIGHT = 2-3 cells (100X) (0-2/hpf); Red Blood Cell (RBC) Count 2.87 mill/uL (4.70-6.10)
[2016-12-26] MEDS: Bisacodyl 10 MG SUPP PR SCH (09:08)
[2016-12-26] MEDS: Cefepime 2 GM, Syringe 2.5 ML in Sterile Water 10 ML SLOW IVP SCH (09:10)
[2016-12-26] MEDS: Meropenem 2 GM, Admixture Fee 1 EACH in Sodium Chloride 0.9% 100 ML IVPB SCH ×2 (09:15→17:43)
[2016-12-26] MEDS: Amantadine HCl 100 mg Capsule PO SCH (09:15)
[2016-12-26] MEDS: Senokot S 8.6-50 MG TAB PO SCH ×2 (09:16→20:29)
[2016-12-26] MEDS: Polyethylene Glycol 3350 17 GM Packet PO SCH (09:16)
[2016-12-26] MEDS: Famotidine 20 MG TAB PER TUBE SCH ×2 (09:16→20:28)
--- NOTE | 2016-12-26 09:51 | RAD ---
PORTABLE AP CHEST: Date: 12-26-16 History: Chest tube. Comparison: 12-25-16 FINDINGS: Tracheostomy device remains in place. Again noted are bilateral interstitial and alveolar opacities, overall similar to the prior exam, which may be related to pulmonary edema or possibly infectious p rocess. Cardiac silhouette does appear mildly enlarged. No additional interval change. Gaseous diste ntion of loops of bowel are seen, partially imaged in the upper abdomen, also seen on prior exam. IMPRESSION: Stable chest with increased interstitial and alveolar opacities which may be related to pulmonary ed hiro or infectious process. POS: [facility]
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
[2016-12-26] MEDS: Enoxaparin Sodium 40 MG/0.4 ML SYRINGE SC SCH (20:28)
[2016-12-27] MEDS: Meropenem 2 GM, Admixture Fee 1 EACH in Sodium Chloride 0.9% 100 ML IVPB SCH ×3 (00:15→16:53)
[2016-12-27] MEDS: cloNIDine 0.1 MG TAB PO SCH ×4 (00:18→18:42)
[2016-12-27] MEDS: HYDROcodone/Acetaminophen 10/325 mg Tablet PO SCH ×6 (00:18→19:55)
--- NOTE | 2016-12-27 08:33 | RAD ---
ONE VIEW CHEST: Comparison: 12-26-16 History: Chest tube. FINDINGS: Stable tracheostomy. No evidence of a chest tube. Diminished lung volumes. No consolidation or ass. No consolidation or mass. No pleural effusion or pneumothorax. Normal cardiac silhouette. IMPRESSION: Improved aeration of lung parenchyma. POS: OFF
[2016-12-27] MEDS: Famotidine 20 MG TAB PER TUBE SCH ×2 (08:40→20:03)
[2016-12-27] MEDS: Bisacodyl 10 MG SUPP PR SCH (08:40)
[2016-12-27] MEDS: Amantadine HCl 100 mg Capsule PO SCH ×2 (08:40→20:03)
[2016-12-27] MEDS: Polyethylene Glycol 3350 17 GM Packet PO SCH (08:41)
[2016-12-27] MEDS: Senokot S 8.6-50 MG TAB PO SCH ×2 (08:41→20:03)
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
[2016-12-27] MEDS: Labetalol HCl 100 MG/20 ML VIAL SLOW IVP PRN (10:29)
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
[2016-12-27] MEDS ORDERED: Acetaminophen 650 MG/20.3 ML UDCUP PO PRN (15:28)
[2016-12-27] MEDS: Enoxaparin Sodium 40 MG/0.4 ML SYRINGE SC SCH (20:02)
[2016-12-28] MEDS: HYDROcodone/Acetaminophen 10/325 mg Tablet PO SCH ×6 (00:33→21:50)
[2016-12-28] MEDS: cloNIDine 0.1 MG TAB PO SCH ×4 (00:33→18:13)
[2016-12-28] MEDS: Meropenem 2 GM, Admixture Fee 1 EACH in Sodium Chloride 0.9% 100 ML IVPB SCH ×3 (00:34→16:42)
[2016-12-28 04:33] LABS: Anion Gap 13 mmol/L (10-20); BUN (Urea Nitrogen) 31 mg/dL (8.9-20.6); Calc. Creatinine Clearance 166 mL/min (70-130); Calcium 9.1 mg/dL (7.8-10.44); Carbon Dioxide 28 mmol/L (22-29); Chloride 101 mmol/L (98-107); Estimated GFR-MDRD Greater than 90; Magnesium 2.5 mg/dL (1.6-2.6); Phosphorus 3.3 mg/dL (2.3-4.7)
[2016-12-28 04:51] LABS: #Eosinphils 0.3 thou/uL (0.0-0.7); #Lymphocytes 1.9 thou/uL (1.20-3.40); #Neutrophils 6.7 thou/uL (1.40-6.50); %Basophils 0.3 % (0.0-1.0); %Eosinophils 3.4 % (0.0-10.0); %Lymphocytes 19.2 % (21.0-51.0); Hematocrit 30.1 % (42.0-52.0); Mean Platelet Volume 7.5 fL (7.4-10.4); Red Blood Cell (RBC) Count 2.96 mill/uL (4.70-6.10); White Blood Cell (WBC) Count 9.9 thou/uL (4.8-10.8)
[2016-12-28] MEDS: Amantadine HCl 100 mg Capsule PO SCH ×2 (08:14→21:50)
[2016-12-28] MEDS: Bisacodyl 10 MG SUPP PR SCH ×2 (08:15→08:29)
[2016-12-28] MEDS: Polyethylene Glycol 3350 17 GM Packet PO SCH ×2 (08:15→08:29)
[2016-12-28] MEDS: Senokot S 8.6-50 MG TAB PO SCH ×3 (08:15→21:47)
[2016-12-28] MEDS: Famotidine 20 MG TAB PER TUBE SCH ×2 (08:15→21:50)
--- NOTE | 2016-12-28 08:38 | RAD ---
PORTABLE AP CHEST X-RAY: 12/28/2016 HISTORY: Chest tube placement. Follow-up evaluation. COMPARISON: 12/27/2016. FINDINGS: The tracheostomy device remains in place. Again noted is accentuation of the cardiac silhouette and bronchovascular markings due to shallow depth of inspiration and the portable technique. No pneumo thorax or obvious pleural effusion is seen. There has been no interval change from the prior study. IMPRESSION: Stable chest. POS: [facility]
[2016-12-28] MEDS ORDERED: Magnesium Sulfate 3 GM in Sodium Chloride 0.9% 100 ML IVPB SCH (16:00)
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
[2016-12-28] MEDS: Enoxaparin Sodium 40 MG/0.4 ML SYRINGE SC SCH (21:50)
[2016-12-29] MEDS: cloNIDine 0.1 MG TAB PO SCH ×4 (01:25→17:40)
[2016-12-29] MEDS: Meropenem 2 GM, Admixture Fee 1 EACH in Sodium Chloride 0.9% 100 ML IVPB SCH ×3 (01:29→19:30)
[2016-12-29] MEDS: HYDROcodone/Acetaminophen 10/325 mg Tablet PO SCH ×5 (01:37→17:40)
[2016-12-29 04:29] LABS: #Basophils 0.1 thou/uL (0.0-0.2); #Eosinphils 0.4 thou/uL (0.0-0.7); #Lymphocytes 1.7 thou/uL (1.20-3.40); #Monocytes 0.8 thou/uL (0.11-0.59); #Neutrophils 5.4 thou/uL (1.40-6.50); %Basophils 0.7 % (0.0-1.0); %Eosinophils 4.4 % (0.0-10.0); %Lymphocytes 20.5 % (21.0-51.0); %Monocytes 9.9 % (0.0-10.0); Hematocrit 32.2 % (42.0-52.0); Mean Platelet Volume 7.2 fL (7.4-10.4); Red Blood Cell (RBC) Count 3.15 mill/uL (4.70-6.10); White Blood Cell (WBC) Count 8.3 thou/uL (4.8-10.8)
[2016-12-29 04:43] LABS: Anion Gap 11 mmol/L (10-20); BUN (Urea Nitrogen) 33 mg/dL (8.9-20.6); Calc. Creatinine Clearance 171 mL/min (70-130); Calcium 9.6 mg/dL (7.8-10.44); Carbon Dioxide 30 mmol/L (22-29); Chloride 104 mmol/L (98-107); Estimated GFR-MDRD Greater than 90; Magnesium 2.9 mg/dL (1.6-2.6); Phosphorus 3.4 mg/dL (2.3-4.7)
--- NOTE | 2016-12-29 08:42 | RAD ---
CHEST 1 VIEW: Date: 12/29/16 HISTORY: Dyspnea. Chest pain. Follow-up. COMPARISON: 12/28/16. FINDINGS: The cardiac silhouette is magnified and enlarged. Pulmonary vasculature remains engorged with patchy areas of infiltrate throughout each lung, similar in appearance to the prior study. Mediastinum is midline with tracheostomy appliance in place. media monitor leads overlie the chest. IMPRESSION: Patchy bilateral air space disease and other findings are stable. POS: [facility]
[2016-12-29] MEDS: Bisacodyl 10 MG SUPP PR SCH (09:42)
[2016-12-29] MEDS: Amantadine HCl 100 mg Capsule PO SCH ×2 (09:43→20:43)
[2016-12-29] MEDS: Famotidine 20 MG TAB PER TUBE SCH ×2 (09:44→20:43)
[2016-12-29] MEDS: Senokot S 8.6-50 MG TAB PO SCH ×2 (09:44→20:43)
[2016-12-29] MEDS: Polyethylene Glycol 3350 17 GM Packet PO SCH (09:57)
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
[2016-12-29] MEDS: Enoxaparin Sodium 40 MG/0.4 ML SYRINGE SC SCH (20:43)
[2016-12-30] MEDS: cloNIDine 0.1 MG TAB PO SCH ×5 (00:50→23:46)
[2016-12-30] MEDS: HYDROcodone/Acetaminophen 10/325 mg Tablet PO SCH ×5 (01:00→23:46)
[2016-12-30] MEDS: Meropenem 2 GM, Admixture Fee 1 EACH in Sodium Chloride 0.9% 100 ML IVPB SCH ×3 (04:26→20:48)
[2016-12-30] MEDS ORDERED: Baclofen 10 MG TAB PO SCH (09:30)
[2016-12-30] MEDS: Senokot S 8.6-50 MG TAB PO SCH ×2 (10:05→20:50)
[2016-12-30] MEDS: Famotidine 20 MG TAB PER TUBE SCH ×2 (10:05→20:50)
[2016-12-30] MEDS: Polyethylene Glycol 3350 17 GM Packet PO SCH (10:05)
[2016-12-30] MEDS: Amantadine HCl 100 mg Capsule PO SCH ×2 (10:06→20:49)
--- NOTE | 2016-12-30 10:45 | RAD ---
CHEST ONE VIEW: HISTORY: Dyspnea. Followup. COMPARISON: 12/29/2016 FINDINGS: The cardiac silhouette remains magnified and enlarged. The pulmonary vasculature remains engorged w ith patchy areas of parenchymal infiltrate throughout each lung, similar in appearance to the prior study. The mediastinum remains midline with tracheostomy appliance in place. nurse monitoring leads overly the chest. IMPRESSION: Patchy bilateral infiltrates and other findings are stable. POS: [facility]
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
--- NOTE | 2016-12-30 19:42 | EKG ---
Test Reason : Blood Pressure : / mmHG Vent. Rate : 122 BPM Atrial Rate : 122 BPM P-R Int : 132 ms QRS Dur : 080 ms QT Int : 328 ms P-R-T Axes : 031 007 047 degrees QTc Int : 467 ms Sinus tachycardia Otherwise normal ECG Confirmed by ONEIL FOSS D.O. ([id number]), city editor JUAN LANIER ([id number] on 12/30/2016 7:42:14 PM Referred By: Confirmed By:ONEIL FOSS D.O.
[2016-12-30] MEDS: Baclofen 10 MG TAB PO SCH (20:49)
[2016-12-30] MEDS: Enoxaparin Sodium 40 MG/0.4 ML SYRINGE SC SCH (20:50)
[2016-12-31] MEDS: Meropenem 2 GM, Admixture Fee 1 EACH in Sodium Chloride 0.9% 100 ML IVPB SCH ×3 (04:24→21:01)
[2016-12-31] MEDS: cloNIDine 0.1 MG TAB PO SCH (05:33)
[2016-12-31] MEDS: HYDROcodone/Acetaminophen 10/325 mg Tablet PO SCH (05:34)
--- NOTE | 2016-12-31 08:02 | RAD ---
CHEST 1 VIEW: Date: 12/31/16 HISTORY: Dyspnea. Follow-up. COMPARISON: 12/30/16. FINDINGS: Cardiac silhouette is magnified and enlarged. Pulmonary vasculature remains engorged. Patchy bilater al infiltrates persist, although left infiltrate is slightly less pronounced than on the previous ex am. Mediastinum is midline with tracheostomy appliance. groundwater monitoring technician leads overlie the chest. IMPRESSION: Persistent bilateral infiltrates and pulmonary vascular congestion, slight interval improvement in a eration of the left lung. POS: [facility]
[2016-12-31] MEDS: Polyethylene Glycol 3350 17 GM Packet PO SCH (08:20)
[2016-12-31] MEDS: Senokot S 8.6-50 MG TAB PO SCH ×2 (08:20→20:59)
[2016-12-31] MEDS: Famotidine 20 MG TAB PER TUBE SCH ×2 (08:20→21:00)
[2016-12-31] MEDS: Baclofen 10 MG TAB PO SCH ×2 (08:21→21:00)
[2016-12-31] MEDS: Amantadine HCl 100 mg Capsule PO SCH ×2 (08:22→20:59)
[2016-12-31] MEDS ORDERED: traMADol HCl 50 MG TAB PO PRN (10:20)
[2016-12-31] MEDS: Acetaminophen 500 MG TAB PO SCH ×3 (11:07→22:06)
[2016-12-31] MEDS: Enoxaparin Sodium 40 MG/0.4 ML SYRINGE SC SCH (21:14)
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
[2017-01-01] MEDS: Meropenem 2 GM, Admixture Fee 1 EACH in Sodium Chloride 0.9% 100 ML IVPB SCH (03:49)
[2017-01-01 04:31] LABS: #Basophils 0.1 thou/uL (0.0-0.2); #Eosinphils 0.4 thou/uL (0.0-0.7); #Monocytes 0.9 thou/uL (0.11-0.59); #Neutrophils 7.2 thou/uL (1.40-6.50); %Basophils 0.7 % (0.0-1.0); %Eosinophils 4.1 % (0.0-10.0); %Lymphocytes 18.7 % (21.0-51.0); %Monocytes 8.9 % (0.0-10.0); Hematocrit 39.6 % (42.0-52.0); Mean Platelet Volume 7.7 fL (7.4-10.4); Red Blood Cell (RBC) Count 3.84 mill/uL (4.70-6.10); White Blood Cell (WBC) Count 10.6 thou/uL (4.8-10.8)
[2017-01-01] MEDS: Acetaminophen 500 MG TAB PO SCH ×4 (04:33→21:30)
[2017-01-01 04:47] LABS: Anion Gap 14 mmol/L (10-20); BUN (Urea Nitrogen) 34 mg/dL (8.9-20.6); Calc. Creatinine Clearance 146 mL/min (70-130); Calcium 10.3 mg/dL (7.8-10.44); Carbon Dioxide 28 mmol/L (22-29); Chloride 109 mmol/L (98-107); Estimated GFR-MDRD Greater than 90; Phosphorus 3.1 mg/dL (2.3-4.7)
[2017-01-01] MEDS: Amantadine HCl 100 mg Capsule PO SCH ×2 (08:36→21:31)
[2017-01-01] MEDS: Senokot S 8.6-50 MG TAB PO SCH ×2 (08:36→21:31)
[2017-01-01] MEDS: Baclofen 10 MG TAB PO SCH ×2 (08:36→21:30)
[2017-01-01] MEDS: Famotidine 20 MG TAB PER TUBE SCH ×2 (08:36→21:31)
[2017-01-01] MEDS: Polyethylene Glycol 3350 17 GM Packet PO SCH (08:36)
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
[2017-01-01 18:04] LABS: Bilirubin Negative (Negative); Blood, Urine Large (Negative); Glucose, Urine (Dipstick) Negative (Negative); Ketone, Urine Negative (Negative); Nitrite Negative (Negative); Protein, Urine (Dipstick) 100 mg/dL (Neg-Trace)
[2017-01-01 18:06] LABS: Bacteria/HPF None Seen HPF (None Seen); Hyaline Casts/LPF 4-6 HYALINE CAST LPF (0-3 Hyaline); RBC/HPF GREATER THAN 50-TNTC HPF (0-3); Squamous Epithelial 0-3 HPF (0-3)
[2017-01-01] MEDS: Ibuprofen 800 MG TAB PO PRN (18:20)
[2017-01-01] MEDS: Enoxaparin Sodium 40 MG/0.4 ML SYRINGE SC SCH (21:30)
[2017-01-02] MEDS ORDERED: Sodium Chloride 0.9% 1,000 ML IV SCH (03:15)
[2017-01-02] MEDS: Ibuprofen 800 MG TAB PO PRN (03:25)
[2017-01-02 05:08] LABS: Band 3 % (5-11); Hematocrit 37.3 % (42.0-52.0); Mean Platelet Volume 7.6 fL (7.4-10.4); Neutrophil 58 % (42-75); Red Blood Cell (RBC) Count 3.58 mill/uL (4.70-6.10); White Blood Cell (WBC) Count 11.4 thou/uL (4.8-10.8)
[2017-01-02 05:36] LABS: Anion Gap 15 mmol/L (10-20); BUN (Urea Nitrogen) 38 mg/dL (8.9-20.6); Calc. Creatinine Clearance 146 mL/min (70-130); Calcium 8.9 mg/dL (7.8-10.44); Carbon Dioxide 23 mmol/L (22-29); Chloride 114 mmol/L (98-107); Estimated GFR-MDRD Greater than 90; Magnesium 2.8 mg/dL (1.6-2.6); Phosphorus 2.4 mg/dL (2.3-4.7)
[2017-01-02] MEDS: Acetaminophen 500 MG TAB PO SCH ×4 (05:37→21:33)
--- NOTE | 2017-01-02 08:13 | RAD ---
UPRIGHT PORTABLE CHEST ONE VIEW: History: 31-year-old male with fever. Comparison: 12-31-16 FINDINGS: Tracheostomy tube in place. Inspiration is somewhat less than optimal with some mild vascular crowdin g. Heart size is borderline. There is some borderline vascular congestion. No confluent pneumonia, ov ert edema, or pleural effusion. IMPRESSION: Mild vascular congestion. No confluent pneumonia or other acute process. Overall stable from prior st udy. POS: [facility]
[2017-01-02] MEDS: Senokot S 8.6-50 MG TAB PO SCH ×2 (09:12→21:31)
[2017-01-02] MEDS: Famotidine 20 MG TAB PER TUBE SCH ×2 (09:12→21:31)
[2017-01-02] MEDS: Baclofen 10 MG TAB PO SCH ×2 (09:12→21:31)
[2017-01-02] MEDS: Amantadine HCl 100 mg Capsule PO SCH ×2 (09:12→21:31)
[2017-01-02] MEDS: Polyethylene Glycol 3350 17 GM Packet PO SCH (09:13)
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
[2017-01-02 13:33] VITALS: BMI 31.9
[2017-01-02] MEDS: Enoxaparin Sodium 40 MG/0.4 ML SYRINGE SC SCH (21:31)
[2017-01-03] MEDS: Acetaminophen 500 MG TAB PO SCH ×4 (04:51→21:34)
[2017-01-03] MEDS: Famotidine 20 MG TAB PER TUBE SCH ×2 (09:01→21:34)
[2017-01-03] MEDS: Senokot S 8.6-50 MG TAB PO SCH ×2 (09:01→21:35)
[2017-01-03] MEDS: Baclofen 10 MG TAB PO SCH ×2 (09:02→21:35)
[2017-01-03] MEDS: Amantadine HCl 100 mg Capsule PO SCH ×2 (09:02→21:35)
[2017-01-03] MEDS: Polyethylene Glycol 3350 17 GM Packet PO SCH (09:02)
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
[2017-01-03] MEDS: Enoxaparin Sodium 40 MG/0.4 ML SYRINGE SC SCH (21:35)
[2017-01-04] MEDS: Acetaminophen 500 MG TAB PO SCH ×4 (05:38→21:33)
[2017-01-04] MEDS: Polyethylene Glycol 3350 17 GM Packet PO SCH (09:03)
[2017-01-04] MEDS: Baclofen 10 MG TAB PO SCH ×2 (09:04→20:58)
[2017-01-04] MEDS: Amantadine HCl 100 mg Capsule PO SCH ×2 (09:04→20:58)
[2017-01-04] MEDS: Famotidine 20 MG TAB PER TUBE SCH ×2 (09:04→21:12)
[2017-01-04] MEDS: Senokot S 8.6-50 MG TAB PO SCH ×2 (09:04→20:58)
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
[2017-01-04] MEDS: Enoxaparin Sodium 40 MG/0.4 ML SYRINGE SC SCH (20:59)
[2017-01-05] MEDS: Acetaminophen 500 MG TAB PO SCH ×4 (04:38→23:19)
[2017-01-05 06:02] LABS: Anion Gap 18 mmol/L (10-20); BUN (Urea Nitrogen) 38 mg/dL (8.9-20.6); Calc. Creatinine Clearance 159 mL/min (70-130); Carbon Dioxide 22 mmol/L (22-29); Chloride 113 mmol/L (98-107); Estimated GFR-MDRD Greater than 90; Phosphorus 4.1 mg/dL (2.3-4.7)
[2017-01-05 06:22] LABS: #Basophils 0.1 thou/uL (0.0-0.2); #Eosinphils 0.2 thou/uL (0.0-0.7); #Lymphocytes 2.4 thou/uL (1.20-3.40); #Monocytes 0.7 thou/uL (0.11-0.59); #Neutrophils 6.2 thou/uL (1.40-6.50); %Basophils 0.8 % (0.0-1.0); %Eosinophils 2.5 % (0.0-10.0); %Monocytes 7.2 % (0.0-10.0); Hematocrit 41.3 % (42.0-52.0); Macrocytosis SLIGHT = 6-15 cells (100X) (0-5/hpf); Mean Platelet Volume 8.9 fL (7.4-10.4); Red Blood Cell (RBC) Count 3.91 mill/uL (4.70-6.10); White Blood Cell (WBC) Count 9.6 thou/uL (4.8-10.8)
--- NOTE | 2017-01-05 07:48 | RAD ---
SEMIUPRIGHT PORTABLE CHEST 1 VIEW: Date: 01/05/17 HISTORY: 31-year-old male with fever. FINDINGS: Tracheostomy tube in place. Minimal patchy linear and parenchymal changes in the right base. Mild va scular congestion. No significant new process. IMPRESSION: Stable mild vascular congestion and linear parenchymal changes in the right base. No new process. POS: [facility]
[2017-01-05] MEDS: Amantadine HCl 100 mg Capsule PO SCH ×2 (09:25→23:18)
[2017-01-05] MEDS: Senokot S 8.6-50 MG TAB PO SCH ×2 (09:25→23:18)
[2017-01-05] MEDS: Baclofen 10 MG TAB PO SCH ×2 (09:25→23:18)
[2017-01-05] MEDS: Famotidine 20 MG TAB PER TUBE SCH ×2 (09:25→23:18)
[2017-01-05] MEDS: Polyethylene Glycol 3350 17 GM Packet PO SCH (09:25)
[2017-01-05] MEDS: Enoxaparin Sodium 40 MG/0.4 ML SYRINGE SC SCH (23:18)
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
[2017-01-06] MEDS: Acetaminophen 500 MG TAB PO SCH ×4 (05:48→23:12)
[2017-01-06] MEDS: Famotidine 20 MG TAB PER TUBE SCH ×2 (10:06→20:47)
[2017-01-06] MEDS: Baclofen 10 MG TAB PO SCH ×2 (10:06→20:47)
[2017-01-06] MEDS: Polyethylene Glycol 3350 17 GM Packet PO SCH (10:07)
[2017-01-06] MEDS: Amantadine HCl 100 mg Capsule PO SCH ×2 (10:07→20:47)
[2017-01-06] MEDS: Senokot S 8.6-50 MG TAB PO SCH ×2 (10:07→20:48)
[2017-01-06] MEDS ORDERED: Lacri-Lube Opth Oint 3.5 GM TUBE EA EYE PRN (10:26)
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
[2017-01-06] MEDS: Enoxaparin Sodium 40 MG/0.4 ML SYRINGE SC SCH (20:47)
[2017-01-07] MEDS: Acetaminophen 500 MG TAB PO SCH ×4 (04:44→22:13)
[2017-01-07 05:37] LABS: #Basophils 0.1 thou/uL (0.0-0.2); #Eosinphils 0.2 thou/uL (0.0-0.7); #Lymphocytes 2.4 thou/uL (1.20-3.40); #Monocytes 0.7 thou/uL (0.11-0.59); #Neutrophils 6.1 thou/uL (1.40-6.50); %Basophils 0.7 % (0.0-1.0); %Eosinophils 2.5 % (0.0-10.0); %Lymphocytes 25.6 % (21.0-51.0); %Monocytes 7.2 % (0.0-10.0); Hematocrit 40.4 % (42.0-52.0); Mean Platelet Volume 9.5 fL (7.4-10.4); Red Blood Cell (RBC) Count 3.85 mill/uL (4.70-6.10); White Blood Cell (WBC) Count 9.5 thou/uL (4.8-10.8)
[2017-01-07 06:01] LABS: Anion Gap 14 mmol/L (10-20); BUN (Urea Nitrogen) 34 mg/dL (8.9-20.6); Calc. Creatinine Clearance 167 mL/min (70-130); Calcium 10.2 mg/dL (7.8-10.44); Carbon Dioxide 26 mmol/L (22-29); Chloride 111 mmol/L (98-107); Estimated GFR-MDRD Greater than 90; Magnesium 2.7 mg/dL (1.6-2.6); Phosphorus 4.1 mg/dL (2.3-4.7)
[2017-01-07] MEDS: Baclofen 10 MG TAB PO SCH ×2 (09:02→20:55)
[2017-01-07] MEDS: Famotidine 20 MG TAB PER TUBE SCH ×2 (09:02→20:55)
[2017-01-07] MEDS: Amantadine HCl 100 mg Capsule PO SCH ×2 (09:02→20:55)
[2017-01-07] MEDS: Polyethylene Glycol 3350 17 GM Packet PO SCH (09:33)
[2017-01-07] MEDS: Senokot S 8.6-50 MG TAB PO SCH ×2 (09:33→20:55)
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
[2017-01-07] MEDS: Enoxaparin Sodium 40 MG/0.4 ML SYRINGE SC SCH (20:55)
[2017-01-08] MEDS: Acetaminophen 500 MG TAB PO SCH ×4 (04:38→20:21)
[2017-01-08 06:02] LABS: Anion Gap 17 mmol/L (10-20); BUN (Urea Nitrogen) 33 mg/dL (8.9-20.6); Calc. Creatinine Clearance 169 mL/min (70-130); Calcium 9.9 mg/dL (7.8-10.44); Carbon Dioxide 23 mmol/L (22-29); Chloride 110 mmol/L (98-107); Estimated GFR-MDRD Greater than 90; Magnesium 2.6 mg/dL (1.6-2.6); Phosphorus 4.1 mg/dL (2.3-4.7)
[2017-01-08] MEDS: Amantadine HCl 100 mg Capsule PO SCH ×2 (10:14→20:21)
[2017-01-08] MEDS: Baclofen 10 MG TAB PO SCH ×2 (10:14→20:21)
[2017-01-08] MEDS: Polyethylene Glycol 3350 17 GM Packet PO SCH ×2 (10:15→10:22)
[2017-01-08] MEDS: Senokot S 8.6-50 MG TAB PO SCH ×3 (10:15→20:21)
[2017-01-08] MEDS: Famotidine 20 MG TAB PER TUBE SCH ×2 (10:15→20:21)
[2017-01-08] MEDS: Ibuprofen 800 MG TAB PO PRN (10:15)
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
[2017-01-08] MEDS: Enoxaparin Sodium 40 MG/0.4 ML SYRINGE SC SCH (20:21)
[2017-01-09] MEDS: Acetaminophen 500 MG TAB PO SCH ×4 (04:34→21:29)
[2017-01-09] MEDS: Baclofen 10 MG TAB PO SCH ×2 (09:12→20:47)
[2017-01-09] MEDS: Famotidine 20 MG TAB PER TUBE SCH ×2 (09:12→20:47)
[2017-01-09] MEDS: Senokot S 8.6-50 MG TAB PO SCH ×2 (09:12→20:47)
[2017-01-09] MEDS: Polyethylene Glycol 3350 17 GM Packet PO SCH (09:13)
[2017-01-09] MEDS: Amantadine HCl 100 mg Capsule PO SCH ×2 (09:13→20:47)
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
[2017-01-09] MEDS: Enoxaparin Sodium 40 MG/0.4 ML SYRINGE SC SCH (20:48)
[2017-01-10] MEDS: Acetaminophen 500 MG TAB PO SCH ×4 (04:19→20:45)
[2017-01-10] MEDS: Baclofen 10 MG TAB PO SCH ×2 (08:23→20:44)
[2017-01-10] MEDS: Famotidine 20 MG TAB PER TUBE SCH ×2 (08:23→20:44)
[2017-01-10] MEDS: Amantadine HCl 100 mg Capsule PO SCH ×2 (08:23→20:44)
[2017-01-10 08:27] LABS: #Basophils 0.1 thou/uL (0.0-0.2); #Eosinphils 0.1 thou/uL (0.0-0.7); #Lymphocytes 2.3 thou/uL (1.20-3.40); #Monocytes 0.7 thou/uL (0.11-0.59); #Neutrophils 4.5 thou/uL (1.40-6.50); %Basophils 0.7 % (0.0-1.0); %Eosinophils 1.9 % (0.0-10.0); %Lymphocytes 29.9 % (21.0-51.0); %Monocytes 8.6 % (0.0-10.0); Hematocrit 42.1 % (42.0-52.0); Mean Platelet Volume 10.5 fL (7.4-10.4); Red Blood Cell (RBC) Count 4.02 mill/uL (4.70-6.10); White Blood Cell (WBC) Count 7.6 thou/uL (4.8-10.8)
[2017-01-10] MEDS: Senokot S 8.6-50 MG TAB PO SCH ×2 (08:28→20:44)
[2017-01-10] MEDS: Polyethylene Glycol 3350 17 GM Packet PO SCH (08:28)
[2017-01-10 08:46] LABS: Anion Gap 12 mmol/L (10-20); BUN (Urea Nitrogen) 30 mg/dL (8.9-20.6); Calc. Creatinine Clearance 180 mL/min (70-130); Calcium 10.1 mg/dL (7.8-10.44); Carbon Dioxide 28 mmol/L (22-29); Chloride 109 mmol/L (98-107); Estimated GFR-MDRD Greater than 90; Magnesium 2.5 mg/dL (1.6-2.6); Phosphorus 4.5 mg/dL (2.3-4.7)
[2017-01-10] MEDS ORDERED: Sodium Chloride 0.9% 15 ML NEB ONE (10:59)
[2017-01-10] MEDS: Enoxaparin Sodium 40 MG/0.4 ML SYRINGE SC SCH (20:44)
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
[2017-01-11] MEDS: Acetaminophen 500 MG TAB PO SCH ×4 (04:30→22:18)
[2017-01-11 04:57] LABS: #Basophils 0.1 thou/uL (0.0-0.2); #Eosinphils 0.2 thou/uL (0.0-0.7); #Lymphocytes 2.2 thou/uL (1.20-3.40); #Monocytes 0.7 thou/uL (0.11-0.59); %Basophils 0.7 % (0.0-1.0); %Monocytes 8.3 % (0.0-10.0); Hematocrit 41.3 % (42.0-52.0); Mean Platelet Volume 10.2 fL (7.4-10.4); Red Blood Cell (RBC) Count 3.94 mill/uL (4.70-6.10)
[2017-01-11 05:17] LABS: Anion Gap 13 mmol/L (10-20); BUN (Urea Nitrogen) 30 mg/dL (8.9-20.6); Calc. Creatinine Clearance 178 mL/min (70-130); Calcium 9.9 mg/dL (7.8-10.44); Carbon Dioxide 28 mmol/L (22-29); Chloride 109 mmol/L (98-107); Estimated GFR-MDRD Greater than 90; Magnesium 2.5 mg/dL (1.6-2.6); Phosphorus 4.1 mg/dL (2.3-4.7)
[2017-01-11] MEDS: Senokot S 8.6-50 MG TAB PO SCH ×2 (09:07→21:15)
[2017-01-11] MEDS: Polyethylene Glycol 3350 17 GM Packet PO SCH (09:07)
[2017-01-11] MEDS: Baclofen 10 MG TAB PO SCH ×2 (09:08→21:15)
[2017-01-11] MEDS: Amantadine HCl 100 mg Capsule PO SCH ×2 (09:08→21:15)
[2017-01-11] MEDS: Famotidine 20 MG TAB PER TUBE SCH ×2 (09:08→21:15)
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
[2017-01-11] MEDS: Enoxaparin Sodium 40 MG/0.4 ML SYRINGE SC SCH (21:15)
[2017-01-12] MEDS: Acetaminophen 500 MG TAB PO SCH ×4 (04:21→22:18)
[2017-01-12] MEDS: Amantadine HCl 100 mg Capsule PO SCH ×2 (08:01→20:25)
[2017-01-12] MEDS: Baclofen 10 MG TAB PO SCH ×2 (08:01→20:25)
[2017-01-12] MEDS: Famotidine 20 MG TAB PER TUBE SCH ×2 (08:01→20:25)
[2017-01-12] MEDS: Senokot S 8.6-50 MG TAB PO SCH ×2 (08:04→20:26)
[2017-01-12] MEDS: Polyethylene Glycol 3350 17 GM Packet PO SCH (08:04)
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
[2017-01-12] MEDS: Enoxaparin Sodium 40 MG/0.4 ML SYRINGE SC SCH (20:26)
[2017-01-13] MEDS: Acetaminophen 500 MG TAB PO SCH ×4 (04:39→21:31)
[2017-01-13] MEDS: Baclofen 10 MG TAB PO SCH ×2 (08:29→21:09)
[2017-01-13] MEDS: Famotidine 20 MG TAB PER TUBE SCH ×2 (08:29→21:09)
[2017-01-13] MEDS: Amantadine HCl 100 mg Capsule PO SCH ×2 (08:29→21:09)
[2017-01-13] MEDS: Polyethylene Glycol 3350 17 GM Packet PO SCH (08:30)
[2017-01-13] MEDS: Senokot S 8.6-50 MG TAB PO SCH ×2 (08:31→21:09)
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
[2017-01-13] MEDS: Enoxaparin Sodium 40 MG/0.4 ML SYRINGE SC SCH (21:09)
[2017-01-14] MEDS: Ibuprofen 800 MG TAB PO PRN (03:50)
[2017-01-14] MEDS: Acetaminophen 500 MG TAB PO SCH ×4 (04:35→23:00)
[2017-01-14] MEDS: Baclofen 10 MG TAB PO SCH ×2 (09:26→20:04)
[2017-01-14] MEDS: Famotidine 20 MG TAB PER TUBE SCH ×2 (09:27→20:04)
[2017-01-14] MEDS: Polyethylene Glycol 3350 17 GM Packet PO SCH (09:27)
[2017-01-14] MEDS: Senokot S 8.6-50 MG TAB PO SCH ×2 (09:27→20:04)
[2017-01-14] MEDS: Amantadine HCl 100 mg Capsule PO SCH ×2 (09:27→20:05)
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
[2017-01-14] MEDS: Enoxaparin Sodium 40 MG/0.4 ML SYRINGE SC SCH (20:05)
[2017-01-15] MEDS: Acetaminophen 500 MG TAB PO SCH ×4 (05:35→23:34)
[2017-01-15] MEDS: Polyethylene Glycol 3350 17 GM Packet PO SCH (09:06)
[2017-01-15] MEDS: Famotidine 20 MG TAB PER TUBE SCH ×2 (09:06→21:06)
[2017-01-15] MEDS: Amantadine HCl 100 mg Capsule PO SCH ×2 (09:06→21:06)
[2017-01-15] MEDS: Senokot S 8.6-50 MG TAB PO SCH ×2 (09:06→21:06)
[2017-01-15] MEDS: Baclofen 10 MG TAB PO SCH ×2 (09:06→21:06)
[2017-01-15 09:08] LABS: #Eosinphils 0.1 thou/uL (0.0-0.7); #Lymphocytes 2.2 thou/uL (1.20-3.40); #Monocytes 0.6 thou/uL (0.11-0.59); #Neutrophils 4.7 thou/uL (1.40-6.50); %Basophils 0.5 % (0.0-1.0); %Eosinophils 1.6 % (0.0-10.0); %Lymphocytes 28.3 % (21.0-51.0); %Monocytes 8.2 % (0.0-10.0); Hematocrit 39.3 % (42.0-52.0); Mean Platelet Volume 9.8 fL (7.4-10.4); Red Blood Cell (RBC) Count 3.78 mill/uL (4.70-6.10); White Blood Cell (WBC) Count 7.6 thou/uL (4.8-10.8)
[2017-01-15 09:31] LABS: ALT (SGPT) 33 U/L (8-55); AST (SGOT) 23 U/L (5-34); Alkaline Phosphatase 112 U/L (40-150); Anion Gap 12 mmol/L (10-20); BUN (Urea Nitrogen) 28 mg/dL (8.9-20.6); Bilirubin, Total 0.4 mg/dL (0.2-1.2); Calc. Creatinine Clearance 198 mL/min (70-130); Calcium 9.8 mg/dL (7.8-10.44); Carbon Dioxide 26 mmol/L (22-29); Chloride 106 mmol/L (98-107); Estimated GFR-MDRD Greater than 90; Globulin 3.7 g/dL (2.4-3.5); Magnesium 2.2 mg/dL (1.6-2.6); Phosphorus 4.4 mg/dL (2.3-4.7); Protein, Total 7.6 g/dL (6.0-8.3)
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
[2017-01-15] MEDS: Enoxaparin Sodium 40 MG/0.4 ML SYRINGE SC SCH (21:06)
[2017-01-16] MEDS: Acetaminophen 500 MG TAB PO SCH ×4 (05:07→22:51)
[2017-01-16] MEDS: Amantadine HCl 100 mg Capsule PO SCH ×2 (09:55→20:46)
[2017-01-16] MEDS: Polyethylene Glycol 3350 17 GM Packet PO SCH (09:55)
[2017-01-16] MEDS: Famotidine 20 MG TAB PER TUBE SCH ×2 (09:55→20:46)
[2017-01-16] MEDS: Baclofen 10 MG TAB PO SCH ×2 (09:55→20:46)
[2017-01-16] MEDS: Senokot S 8.6-50 MG TAB PO SCH ×2 (09:55→20:46)
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
[2017-01-16] MEDS: Enoxaparin Sodium 40 MG/0.4 ML SYRINGE SC SCH (20:46)
[2017-01-16] MEDS: Ciprofloxacin 500 MG TAB PO SCH (20:48)
[2017-01-17] MEDS: Acetaminophen 500 MG TAB PO SCH ×4 (05:38→21:35)
[2017-01-17] MEDS: Ciprofloxacin 500 MG TAB PO SCH ×2 (05:38→21:29)
[2017-01-17] MEDS: Senokot S 8.6-50 MG TAB PO SCH ×2 (09:05→21:29)
[2017-01-17] MEDS: Polyethylene Glycol 3350 17 GM Packet PO SCH (09:05)
[2017-01-17] MEDS: Famotidine 20 MG TAB PER TUBE SCH ×2 (09:05→21:29)
[2017-01-17] MEDS: Baclofen 10 MG TAB PO SCH ×2 (09:05→21:28)
[2017-01-17] MEDS: Amantadine HCl 100 mg Capsule PO SCH ×2 (09:05→21:29)
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
[2017-01-17] MEDS: Enoxaparin Sodium 40 MG/0.4 ML SYRINGE SC SCH (21:28)
[2017-01-18] MEDS: Acetaminophen 500 MG TAB PO SCH ×4 (05:09→21:34)
[2017-01-18] MEDS: Ciprofloxacin 500 MG TAB PO SCH ×2 (05:09→21:14)
[2017-01-18] MEDS: Polyethylene Glycol 3350 17 GM Packet PO SCH (09:26)
[2017-01-18] MEDS: Famotidine 20 MG TAB PER TUBE SCH ×2 (09:26→21:15)
[2017-01-18] MEDS: Amantadine HCl 100 mg Capsule PO SCH ×2 (09:26→21:15)
[2017-01-18] MEDS: Baclofen 10 MG TAB PO SCH ×2 (09:26→21:15)
[2017-01-18] MEDS: Senokot S 8.6-50 MG TAB PO SCH ×2 (09:26→21:15)
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
[2017-01-18] MEDS: Enoxaparin Sodium 40 MG/0.4 ML SYRINGE SC SCH (21:15)
[2017-01-19] MEDS: Ciprofloxacin 500 MG TAB PO SCH ×2 (05:26→20:40)
[2017-01-19] MEDS: Acetaminophen 500 MG TAB PO SCH ×4 (05:26→22:18)
[2017-01-19] MEDS: Baclofen 10 MG TAB PO SCH ×2 (09:35→20:40)
[2017-01-19] MEDS: Amantadine HCl 100 mg Capsule PO SCH ×2 (09:35→20:40)
[2017-01-19] MEDS: Senokot S 8.6-50 MG TAB PO SCH ×2 (09:36→20:40)
[2017-01-19] MEDS: Polyethylene Glycol 3350 17 GM Packet PO SCH (09:36)
[2017-01-19] MEDS: Famotidine 20 MG TAB PER TUBE SCH ×2 (09:36→20:40)
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
[2017-01-19] MEDS: Labetalol HCl 100 MG/20 ML VIAL SLOW IVP PRN (16:24)
[2017-01-19] MEDS: Ibuprofen 800 MG TAB PO PRN (18:05)
[2017-01-19] MEDS: Enoxaparin Sodium 40 MG/0.4 ML SYRINGE SC SCH (20:40)
[2017-01-20] MEDS: Acetaminophen 500 MG TAB PO SCH ×4 (05:25→21:49)
[2017-01-20] MEDS: Ciprofloxacin 500 MG TAB PO SCH ×2 (05:25→21:27)
[2017-01-20] MEDS: Amantadine HCl 100 mg Capsule PO SCH ×2 (08:37→21:27)
[2017-01-20] MEDS: Baclofen 10 MG TAB PO SCH ×2 (08:38→21:27)
[2017-01-20] MEDS: Polyethylene Glycol 3350 17 GM Packet PO SCH (08:38)
[2017-01-20] MEDS: Famotidine 20 MG TAB PER TUBE SCH ×2 (08:38→21:32)
[2017-01-20] MEDS: Labetalol HCl 100 MG/20 ML VIAL SLOW IVP PRN (08:39)
[2017-01-20] MEDS: Senokot S 8.6-50 MG TAB PO SCH ×2 (08:53→21:27)
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
[2017-01-20] MEDS: Enoxaparin Sodium 40 MG/0.4 ML SYRINGE SC SCH (21:27)
[2017-01-21] MEDS: Ibuprofen 800 MG TAB PO PRN (00:13)
[2017-01-21] MEDS: Acetaminophen 500 MG TAB PO SCH ×4 (04:49→22:05)
[2017-01-21] MEDS: Ciprofloxacin 500 MG TAB PO SCH ×2 (04:49→20:02)
[2017-01-21] MEDS: Baclofen 10 MG TAB PO SCH ×2 (08:13→20:02)
[2017-01-21] MEDS: Amantadine HCl 100 mg Capsule PO SCH ×2 (08:13→20:02)
[2017-01-21] MEDS: Famotidine 20 MG TAB PER TUBE SCH ×2 (08:13→20:02)
[2017-01-21] MEDS: Senokot S 8.6-50 MG TAB PO SCH (09:01)
[2017-01-21] MEDS: Polyethylene Glycol 3350 17 GM Packet PO SCH (09:01)
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
[2017-01-21] MEDS: Labetalol HCl 100 MG/20 ML VIAL SLOW IVP PRN (17:19)
[2017-01-21] MEDS: Enoxaparin Sodium 40 MG/0.4 ML SYRINGE SC SCH (20:02)
[2017-01-22] MEDS: Ciprofloxacin 500 MG TAB PO SCH ×2 (05:08→21:10)
[2017-01-22] MEDS: Acetaminophen 500 MG TAB PO SCH ×4 (05:09→22:35)
[2017-01-22] MEDS: Famotidine 20 MG TAB PER TUBE SCH ×2 (09:19→21:11)
[2017-01-22] MEDS: Amantadine HCl 100 mg Capsule PO SCH ×2 (09:20→21:10)
[2017-01-22] MEDS: Baclofen 10 MG TAB PO SCH ×2 (09:20→21:10)
[2017-01-22] MEDS: Ibuprofen 800 MG TAB PO PRN (09:21)
[2017-01-22] MEDS: Docusate Sodium 100 MG/10 ML UDCUP PO SCH (09:23)
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
[2017-01-22] MEDS: Enoxaparin Sodium 40 MG/0.4 ML SYRINGE SC SCH (21:11)
[2017-01-23] MEDS: Acetaminophen 500 MG TAB PO SCH ×4 (04:23→22:09)
[2017-01-23 05:49] LABS: #Basophils 0.1 thou/uL (0.0-0.2); #Eosinphils 0.1 thou/uL (0.0-0.7); #Lymphocytes 1.8 thou/uL (1.20-3.40); #Monocytes 0.9 thou/uL (0.11-0.59); #Neutrophils 9.1 thou/uL (1.40-6.50); %Basophils 0.5 % (0.0-1.0); %Eosinophils 0.7 % (0.0-10.0); %Lymphocytes 15.4 % (21.0-51.0); %Monocytes 7.6 % (0.0-10.0); Hematocrit 42.9 % (42.0-52.0); Mean Platelet Volume 9.7 fL (7.4-10.4); Red Blood Cell (RBC) Count 4.18 mill/uL (4.70-6.10)
[2017-01-23 06:18] LABS: Anion Gap 12 mmol/L (10-20); BUN (Urea Nitrogen) 25 mg/dL (8.9-20.6); Calc. Creatinine Clearance 198 mL/min (70-130); Calcium 9.6 mg/dL (7.8-10.44); Carbon Dioxide 24 mmol/L (22-29); Chloride 105 mmol/L (98-107); Estimated GFR-MDRD Greater than 90; Magnesium 2.5 mg/dL (1.6-2.6); Phosphorus 4.1 mg/dL (2.3-4.7)
[2017-01-23] MEDS: Ciprofloxacin 500 MG TAB PO SCH ×2 (06:37→20:01)
[2017-01-23] MEDS: Baclofen 10 MG TAB PO SCH ×2 (09:06→20:01)
[2017-01-23] MEDS: Amantadine HCl 100 mg Capsule PO SCH ×2 (09:06→20:01)
[2017-01-23] MEDS: Famotidine 20 MG TAB PER TUBE SCH ×2 (09:06→20:02)
--- NOTE | 2017-01-23 09:08 | RAD ---
PORTABLE AP CHEST RADIOGRAPH: Date: 01-23-17 History: Fever. Comparison: 01-05-17 FINDINGS: Tracheostomy device remains in place. Linear densities are again seen at the right lung base which ma y be related to scarring and/or atelectasis. Lungs are otherwise clear. Cardiac silhouette is magnifi ed by projection. No other interval change. IMPRESSION: Stable chest. POS: [facility]
[2017-01-23] MEDS: Docusate Sodium 100 MG/10 ML UDCUP PO SCH (09:12)
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
[2017-01-23] MEDS ORDERED: cloNIDine 0.2 MG TAB PO SCH (16:30)
[2017-01-23] MEDS: Enoxaparin Sodium 40 MG/0.4 ML SYRINGE SC SCH (20:02)
[2017-01-23] MEDS: cloNIDine 0.2 MG TAB PO SCH (22:10)
[2017-01-24] MEDS: Acetaminophen 500 MG TAB PO SCH ×4 (04:37→22:02)
[2017-01-24] MEDS: cloNIDine 0.2 MG TAB PO SCH (05:11)
[2017-01-24] MEDS: Baclofen 10 MG TAB PO SCH ×2 (08:34→21:54)
[2017-01-24] MEDS: Amantadine HCl 100 mg Capsule PO SCH ×2 (08:34→21:54)
[2017-01-24] MEDS: Saccharomyces boulardii 250 MG CAP PO SCH (08:34)
[2017-01-24] MEDS: Famotidine 20 MG TAB PER TUBE SCH ×2 (08:34→21:54)
[2017-01-24] MEDS: Docusate Sodium 100 MG/10 ML UDCUP PO SCH (08:35)
[2017-01-24] MEDS: cloNIDine 0.1 MG TAB PO SCH ×3 (08:48→21:53)
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
[2017-01-24] MEDS ORDERED: Morphine 4 MG/ML VIAL SLOW IVP SCH (14:45)
[2017-01-24] MEDS ORDERED: Morphine 4 MG/ML VIAL IM SCH (15:00)
[2017-01-24] MEDS: traMADol HCl 50 MG TAB PO SCH (17:28)
[2017-01-24] MEDS: Enoxaparin Sodium 40 MG/0.4 ML SYRINGE SC SCH (22:00)
[2017-01-25] MEDS: traMADol HCl 50 MG TAB PO SCH ×4 (01:01→18:28)
[2017-01-25] MEDS: cloNIDine 0.1 MG TAB PO SCH ×4 (01:08→20:29)
[2017-01-25] MEDS: Acetaminophen 500 MG TAB PO SCH ×4 (04:15→22:44)
[2017-01-25] MEDS: Amantadine HCl 100 mg Capsule PO SCH ×2 (08:22→20:31)
[2017-01-25] MEDS: Saccharomyces boulardii 250 MG CAP PO SCH (08:22)
[2017-01-25] MEDS: Baclofen 10 MG TAB PO SCH ×2 (08:23→20:31)
[2017-01-25] MEDS: Famotidine 20 MG TAB PER TUBE SCH ×2 (08:23→20:30)
[2017-01-25] MEDS: Docusate Sodium 100 MG/10 ML UDCUP PO SCH (08:23)
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
[2017-01-25] MEDS: Enoxaparin Sodium 40 MG/0.4 ML SYRINGE SC SCH (20:31)
[2017-01-26] MEDS: cloNIDine 0.1 MG TAB PO SCH ×4 (01:01→21:09)
[2017-01-26] MEDS: traMADol HCl 50 MG TAB PO SCH ×4 (01:02→18:02)
[2017-01-26] MEDS ORDERED: Morphine 4 MG/ML VIAL IV SCH (02:30)
[2017-01-26] MEDS: Acetaminophen 500 MG TAB PO SCH ×4 (04:59→22:53)
[2017-01-26] MEDS: Saccharomyces boulardii 250 MG CAP PO SCH (08:44)
[2017-01-26] MEDS: Famotidine 20 MG TAB PER TUBE SCH ×2 (08:44→22:54)
[2017-01-26] MEDS: Amantadine HCl 100 mg Capsule PO SCH ×2 (08:44→21:10)
[2017-01-26] MEDS: Baclofen 10 MG TAB PO SCH ×2 (08:44→21:09)
[2017-01-26] MEDS: Docusate Sodium 100 MG/10 ML UDCUP PO SCH (08:45)
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
[2017-01-26] MEDS: Enoxaparin Sodium 40 MG/0.4 ML SYRINGE SC SCH (21:10)
[2017-01-27] MEDS: traMADol HCl 50 MG TAB PO SCH ×6 (00:03→20:49)
[2017-01-27] MEDS: cloNIDine 0.1 MG TAB PO SCH ×4 (01:52→20:51)
[2017-01-27] MEDS: Acetaminophen 500 MG TAB PO SCH ×4 (04:21→22:40)
[2017-01-27] MEDS: Amantadine HCl 100 mg Capsule PO SCH ×2 (09:53→20:48)
[2017-01-27] MEDS: Saccharomyces boulardii 250 MG CAP PO SCH (09:53)
[2017-01-27] MEDS: Famotidine 20 MG TAB PER TUBE SCH ×2 (09:53→20:48)
[2017-01-27] MEDS: Docusate Sodium 100 MG/10 ML UDCUP PO SCH (09:53)
[2017-01-27] MEDS: Baclofen 10 MG TAB PO SCH ×2 (09:53→20:48)
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
[2017-01-27] MEDS: Enoxaparin Sodium 40 MG/0.4 ML SYRINGE SC SCH (20:48)
[2017-01-27] MEDS ORDERED: cloNIDine 0.1 MG TAB PO SCH ×2 (23:59)
[2017-01-28] MEDS: cloNIDine 0.1 MG TAB PO SCH ×4 (02:26→20:52)
[2017-01-28] MEDS: traMADol HCl 50 MG TAB PO SCH ×4 (02:27→20:53)
[2017-01-28] MEDS: Acetaminophen 500 MG TAB PO SCH ×4 (05:25→22:46)
[2017-01-28] MEDS: Amantadine HCl 100 mg Capsule PO SCH ×2 (09:32→20:52)
[2017-01-28] MEDS: Baclofen 10 MG TAB PO SCH ×2 (09:32→20:52)
[2017-01-28] MEDS: Docusate Sodium 100 MG/10 ML UDCUP PO SCH (09:34)
[2017-01-28] MEDS: Famotidine 20 MG TAB PER TUBE SCH ×2 (09:34→20:53)
[2017-01-28] MEDS: Saccharomyces boulardii 250 MG CAP PO SCH (09:34)
[2017-01-28] MEDS: Ibuprofen 800 MG TAB PO PRN (14:18)
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
[2017-01-28] MEDS ORDERED: Bisacodyl 10 MG SUPP PR PRN (18:28)
[2017-01-28] MEDS: Enoxaparin Sodium 40 MG/0.4 ML SYRINGE SC SCH (20:53)
[2017-01-29] MEDS: cloNIDine 0.1 MG TAB PO SCH ×4 (03:34→20:18)
[2017-01-29] MEDS: traMADol HCl 50 MG TAB PO SCH ×4 (03:37→20:23)
[2017-01-29] MEDS: Acetaminophen 500 MG TAB PO SCH ×4 (03:38→22:49)
[2017-01-29] MEDS: Baclofen 10 MG TAB PO SCH ×2 (08:12→20:19)
[2017-01-29] MEDS: Docusate Sodium 100 MG/10 ML UDCUP PO SCH (08:12)
[2017-01-29] MEDS: Saccharomyces boulardii 250 MG CAP PO SCH (08:13)
[2017-01-29] MEDS: Famotidine 20 MG TAB PER TUBE SCH ×2 (08:13→20:19)
[2017-01-29] MEDS: Amantadine HCl 100 mg Capsule PO SCH ×2 (08:13→20:19)
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
[2017-01-29] MEDS: Ibuprofen 800 MG TAB PO PRN (18:10)
[2017-01-29] MEDS: Enoxaparin Sodium 40 MG/0.4 ML SYRINGE SC SCH (20:18)
[2017-01-30] MEDS: traMADol HCl 50 MG TAB PO SCH ×4 (04:12→20:44)
[2017-01-30] MEDS: cloNIDine 0.1 MG TAB PO SCH ×4 (04:14→20:43)
[2017-01-30] MEDS: Acetaminophen 500 MG TAB PO SCH ×4 (04:14→22:24)
[2017-01-30] MEDS: Amantadine HCl 100 mg Capsule PO SCH ×2 (09:10→20:44)
[2017-01-30] MEDS: Baclofen 10 MG TAB PO SCH ×2 (09:10→20:43)
[2017-01-30] MEDS: Famotidine 20 MG TAB PER TUBE SCH ×2 (09:10→20:44)
[2017-01-30] MEDS: Saccharomyces boulardii 250 MG CAP PO SCH (09:11)
[2017-01-30] MEDS: Docusate Sodium 100 MG/10 ML UDCUP PO SCH (09:12)
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
[2017-01-30] MEDS: Enoxaparin Sodium 40 MG/0.4 ML SYRINGE SC SCH (20:43)
[2017-01-31] MEDS: traMADol HCl 50 MG TAB PO SCH ×4 (04:06→21:13)
[2017-01-31] MEDS: Acetaminophen 500 MG TAB PO SCH ×4 (04:06→22:45)
[2017-01-31] MEDS: cloNIDine 0.1 MG TAB PO SCH ×4 (04:07→21:12)
[2017-01-31] MEDS: Famotidine 20 MG TAB PER TUBE SCH ×2 (09:44→21:15)
[2017-01-31] MEDS: Amantadine HCl 100 mg Capsule PO SCH ×2 (09:44→21:13)
[2017-01-31] MEDS: Baclofen 10 MG TAB PO SCH ×2 (09:44→21:12)
[2017-01-31] MEDS: Docusate Sodium 100 MG/10 ML UDCUP PO SCH (09:45)
[2017-01-31] MEDS: Saccharomyces boulardii 250 MG CAP PO SCH (09:45)
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
[2017-01-31] MEDS: Enoxaparin Sodium 40 MG/0.4 ML SYRINGE SC SCH (21:11)
--- NOTE | 2017-01-31 23:36 | RAD ---
EXAM: ONE VIEW CHEST 01/31/17 COMPARISON: 01/05/17 HISTORY: Fever. FINDINGS: Tracheostomy is redemonstrated. Normal cardiac silhouette. Pulmonary vessels and hilum are normal. Co stophrenic angles are clear. Chronic change in the right lung base. No mass or consolidation. No obvi ous pneumothorax or osseous abnormality. IMPRESSION: No acute cardiopulmonary process. POS: [facility]
[2017-02-01] MEDS: cloNIDine 0.1 MG TAB PO SCH ×4 (03:29→21:47)
[2017-02-01] MEDS: Acetaminophen 500 MG TAB PO SCH ×4 (03:41→23:24)
[2017-02-01] MEDS: traMADol HCl 50 MG TAB PO SCH ×4 (03:42→21:48)
[2017-02-01 06:14] LABS: #Eosinphils 0.1 thou/uL (0.0-0.7); #Lymphocytes 1.9 thou/uL (1.20-3.40); #Monocytes 0.6 thou/uL (0.11-0.59); #Neutrophils 3.9 thou/uL (1.40-6.50); %Basophils 0.7 % (0.0-1.0); %Eosinophils 1.9 % (0.0-10.0); %Lymphocytes 28.7 % (21.0-51.0); %Monocytes 9.5 % (0.0-10.0); Hematocrit 40.3 % (42.0-52.0); Mean Platelet Volume 8.6 fL (7.4-10.4); Red Blood Cell (RBC) Count 3.92 mill/uL (4.70-6.10); White Blood Cell (WBC) Count 6.5 thou/uL (4.8-10.8)
[2017-02-01 06:37] LABS: Anion Gap 10 mmol/L (10-20); BUN (Urea Nitrogen) 16 mg/dL (8.9-20.6); Calc. Creatinine Clearance 210 mL/min (70-130); Calcium 10.1 mg/dL (7.8-10.44); Carbon Dioxide 32 mmol/L (22-29); Chloride 100 mmol/L (98-107); Estimated GFR-MDRD Greater than 90; Phosphorus 4.8 mg/dL (2.3-4.7)
[2017-02-01] MEDS: Baclofen 10 MG TAB PO SCH ×2 (08:49→21:47)
[2017-02-01] MEDS: Saccharomyces boulardii 250 MG CAP PO SCH (08:50)
[2017-02-01] MEDS: Famotidine 20 MG TAB PER TUBE SCH ×2 (08:50→21:50)
[2017-02-01] MEDS: Amantadine HCl 100 mg Capsule PO SCH ×2 (08:50→21:48)
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
[2017-02-01] MEDS: Bisacodyl 10 MG SUPP PR SCH (17:00)
[2017-02-01] MEDS: Senokot S 8.6-50 MG TAB PO SCH ×2 (17:01→21:49)
[2017-02-01] MEDS: Enoxaparin Sodium 40 MG/0.4 ML SYRINGE SC SCH (21:46)
[2017-02-02] MEDS: cloNIDine 0.1 MG TAB PO SCH ×4 (04:01→21:33)
[2017-02-02] MEDS: traMADol HCl 50 MG TAB PO SCH ×4 (04:01→21:34)
[2017-02-02] MEDS: Acetaminophen 500 MG TAB PO SCH ×4 (04:02→21:38)
[2017-02-02] MEDS: Bisacodyl 10 MG SUPP PR SCH (09:06)
[2017-02-02] MEDS: Saccharomyces boulardii 250 MG CAP PO SCH (09:07)
[2017-02-02] MEDS: Amantadine HCl 100 mg Capsule PO SCH ×2 (09:08→21:33)
[2017-02-02] MEDS: Baclofen 10 MG TAB PO SCH ×2 (09:08→21:32)
[2017-02-02] MEDS: Famotidine 20 MG TAB PER TUBE SCH ×2 (09:08→21:33)
[2017-02-02] MEDS: Senokot S 8.6-50 MG TAB PO SCH ×2 (09:08→21:33)
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
[2017-02-02] MEDS: Enoxaparin Sodium 40 MG/0.4 ML SYRINGE SC SCH (21:32)
[2017-02-03] MEDS: cloNIDine 0.1 MG TAB PO SCH ×4 (03:28→21:35)
[2017-02-03] MEDS: traMADol HCl 50 MG TAB PO SCH ×4 (03:55→21:36)
[2017-02-03] MEDS: Acetaminophen 500 MG TAB PO SCH ×4 (03:55→21:36)
[2017-02-03] MEDS: Saccharomyces boulardii 250 MG CAP PO SCH (08:00)
[2017-02-03] MEDS: Amantadine HCl 100 mg Capsule PO SCH ×2 (08:01→21:36)
[2017-02-03] MEDS: Senokot S 8.6-50 MG TAB PO SCH ×2 (08:01→21:36)
[2017-02-03] MEDS: Baclofen 10 MG TAB PO SCH ×2 (08:01→21:35)
[2017-02-03] MEDS: Famotidine 20 MG TAB PER TUBE SCH ×2 (08:01→21:36)
[2017-02-03] MEDS: Bisacodyl 10 MG SUPP PR SCH (08:02)
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
[2017-02-03] MEDS: Enoxaparin Sodium 40 MG/0.4 ML SYRINGE SC SCH (21:34)
[2017-02-04] MEDS: cloNIDine 0.1 MG TAB PO SCH ×4 (03:46→20:38)
[2017-02-04] MEDS: traMADol HCl 50 MG TAB PO SCH ×4 (03:46→20:40)
[2017-02-04] MEDS: Acetaminophen 500 MG TAB PO SCH ×4 (03:47→20:33)
[2017-02-04] MEDS: Baclofen 10 MG TAB PO SCH ×2 (09:03→20:33)
[2017-02-04] MEDS: Amantadine HCl 100 mg Capsule PO SCH ×2 (09:03→20:33)
[2017-02-04] MEDS: Bisacodyl 10 MG SUPP PR SCH (09:04)
[2017-02-04] MEDS: Famotidine 20 MG TAB PER TUBE SCH ×2 (09:05→20:33)
[2017-02-04] MEDS: Senokot S 8.6-50 MG TAB PO SCH ×2 (09:05→20:32)
[2017-02-04] MEDS: Saccharomyces boulardii 250 MG CAP PO SCH (09:05)
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
[2017-02-04] MEDS: Enoxaparin Sodium 40 MG/0.4 ML SYRINGE SC SCH (20:32)
[2017-02-05] MEDS: Acetaminophen 500 MG TAB PO SCH ×4 (03:35→20:54)
[2017-02-05] MEDS: traMADol HCl 50 MG TAB PO SCH ×4 (03:36→20:57)
[2017-02-05] MEDS: cloNIDine 0.1 MG TAB PO SCH ×4 (03:40→20:55)
[2017-02-05] MEDS: Famotidine 20 MG TAB PER TUBE SCH ×2 (08:53→20:54)
[2017-02-05] MEDS: Baclofen 10 MG TAB PO SCH ×2 (08:53→20:54)
[2017-02-05] MEDS: Saccharomyces boulardii 250 MG CAP PO SCH (08:53)
[2017-02-05] MEDS: Amantadine HCl 100 mg Capsule PO SCH ×2 (08:54→20:54)
[2017-02-05] MEDS: Senokot S 8.6-50 MG TAB PO SCH ×2 (09:09→20:54)
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
[2017-02-05] MEDS: Enoxaparin Sodium 40 MG/0.4 ML SYRINGE SC SCH (20:56)
[2017-02-06] MEDS: Acetaminophen 500 MG TAB PO SCH ×4 (02:46→21:56)
[2017-02-06] MEDS: cloNIDine 0.1 MG TAB PO SCH ×4 (02:46→21:56)
[2017-02-06] MEDS: traMADol HCl 50 MG TAB PO SCH ×4 (02:46→22:04)
[2017-02-06] MEDS: Famotidine 20 MG TAB PER TUBE SCH ×2 (09:12→21:56)
[2017-02-06] MEDS: Amantadine HCl 100 mg Capsule PO SCH ×2 (09:12→21:56)
[2017-02-06] MEDS: Baclofen 10 MG TAB PO SCH ×2 (09:12→21:56)
[2017-02-06] MEDS: Senokot S 8.6-50 MG TAB PO SCH ×2 (09:13→21:56)
[2017-02-06] MEDS: Saccharomyces boulardii 250 MG CAP PO SCH (09:13)
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
[2017-02-06] MEDS: Enoxaparin Sodium 40 MG/0.4 ML SYRINGE SC SCH (21:56)
[2017-02-06] MEDS ORDERED: traMADol HCl 50 MG TAB PO SCH (22:00)
[2017-02-07] MEDS: traMADol HCl 50 MG TAB PO SCH ×4 (04:01→21:37)
[2017-02-07] MEDS: Acetaminophen 500 MG TAB PO SCH ×4 (04:01→21:38)
[2017-02-07] MEDS: cloNIDine 0.1 MG TAB PO SCH ×4 (04:07→21:38)
[2017-02-07] MEDS: Amantadine HCl 100 mg Capsule PO SCH ×2 (08:42→21:38)
[2017-02-07] MEDS: Saccharomyces boulardii 250 MG CAP PO SCH (08:42)
[2017-02-07] MEDS: Baclofen 10 MG TAB PO SCH ×2 (08:42→21:38)
[2017-02-07] MEDS: Famotidine 20 MG TAB PER TUBE SCH ×2 (08:42→21:38)
[2017-02-07] MEDS: Senokot S 8.6-50 MG TAB PO SCH ×2 (08:42→21:38)
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
[2017-02-07] MEDS: Enoxaparin Sodium 40 MG/0.4 ML SYRINGE SC SCH (21:39)
[2017-02-08] MEDS: cloNIDine 0.1 MG TAB PO SCH ×4 (03:58→21:16)
[2017-02-08] MEDS: traMADol HCl 50 MG TAB PO SCH ×4 (03:58→21:15)
[2017-02-08] MEDS: Acetaminophen 500 MG TAB PO SCH ×4 (03:58→22:26)
[2017-02-08] MEDS: Bisacodyl 10 MG SUPP PR PRN ×2 (03:59→06:36)
[2017-02-08] MEDS: Baclofen 10 MG TAB PO SCH ×2 (09:12→21:15)
[2017-02-08] MEDS: Saccharomyces boulardii 250 MG CAP PO SCH (09:12)
[2017-02-08] MEDS: Senokot S 8.6-50 MG TAB PO SCH ×2 (09:13→21:13)
[2017-02-08] MEDS: Amantadine HCl 100 mg Capsule PO SCH ×2 (09:14→21:15)
[2017-02-08] MEDS: Famotidine 20 MG TAB PER TUBE SCH ×2 (09:14→21:15)
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
[2017-02-08] MEDS: Enoxaparin Sodium 40 MG/0.4 ML SYRINGE SC SCH (21:13)
[2017-02-09] MEDS: traMADol HCl 50 MG TAB PO SCH ×4 (04:16→20:32)
[2017-02-09] MEDS: Acetaminophen 500 MG TAB PO SCH ×4 (04:20→20:32)
[2017-02-09] MEDS: cloNIDine 0.1 MG TAB PO SCH ×4 (04:20→20:35)
[2017-02-09] MEDS: Amantadine HCl 100 mg Capsule PO SCH ×2 (08:20→20:31)
[2017-02-09] MEDS: Saccharomyces boulardii 250 MG CAP PO SCH (08:21)
[2017-02-09] MEDS: Famotidine 20 MG TAB PER TUBE SCH ×2 (08:21→20:33)
[2017-02-09] MEDS: Senokot S 8.6-50 MG TAB PO SCH ×2 (08:21→20:32)
[2017-02-09] MEDS: Baclofen 10 MG TAB PO SCH ×2 (08:22→20:33)
[2017-02-09 09:07] LABS: Hematocrit 40.7 % (42.0-52.0); Red Blood Cell (RBC) Count 4.05 mill/uL (4.70-6.10); White Blood Cell (WBC) Count 8.4 thou/uL (4.8-10.8)
[2017-02-09 09:08] LABS: #Basophils 0.1 thou/uL (0.0-0.2); #Eosinphils 0.1 thou/uL (0.0-0.7); #Lymphocytes 1.8 thou/uL (1.20-3.40); #Monocytes 0.9 thou/uL (0.11-0.59); #Neutrophils 5.6 thou/uL (1.40-6.50); %Basophils 0.6 % (0.0-1.0); %Eosinophils 1.4 % (0.0-10.0); %Lymphocytes 21.4 % (21.0-51.0); %Monocytes 10.4 % (0.0-10.0); Mean Platelet Volume 8.4 fL (7.4-10.4)
[2017-02-09 09:18] LABS: Anion Gap 12 mmol/L (10-20); BUN (Urea Nitrogen) 14 mg/dL (8.9-20.6); Calc. Creatinine Clearance 198 mL/min (70-130); Calcium 9.9 mg/dL (7.8-10.44); Carbon Dioxide 28 mmol/L (22-29); Chloride 99 mmol/L (98-107); Estimated GFR-MDRD Greater than 90; Phosphorus 4.6 mg/dL (2.3-4.7)
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
--- NOTE | 2017-02-09 16:41 | RAD ---
MODIFIED BARIUM SWALLOW: 02/09/17 CLINICAL HISTORY: Dysphagia, oropharyngeal phase. Feeding difficulty. Posttraumatic brain injury. FINDINGS: The exam is performed in conjunction with speech pathology. Reference speech pathology report for fur ther detail. With the provided, ingested radiopaque materials, there is no evidence of laryngeal penetration or tr acheal aspiration. IMPRESSION: No penetration or aspiration identified. POS: RAFAEL
[2017-02-09] MEDS: Enoxaparin Sodium 40 MG/0.4 ML SYRINGE SC SCH (20:33)
[2017-02-10] MEDS: cloNIDine 0.1 MG TAB PO SCH ×4 (04:15→21:43)
[2017-02-10] MEDS: traMADol HCl 50 MG TAB PO SCH ×4 (04:15→21:41)
[2017-02-10] MEDS: Acetaminophen 500 MG TAB PO SCH ×4 (04:15→21:43)
[2017-02-10] MEDS: Saccharomyces boulardii 250 MG CAP PO SCH (08:50)
[2017-02-10] MEDS: Baclofen 10 MG TAB PO SCH ×2 (08:52→21:43)
[2017-02-10] MEDS: Famotidine 20 MG TAB PER TUBE SCH ×2 (08:53→21:43)
[2017-02-10] MEDS: Senokot S 8.6-50 MG TAB PO SCH ×2 (08:53→21:43)
[2017-02-10] MEDS: Amantadine HCl 100 mg Capsule PO SCH ×2 (08:53→21:43)
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
[2017-02-10] MEDS: Enoxaparin Sodium 40 MG/0.4 ML SYRINGE SC SCH (21:41)
[2017-02-11] MEDS: cloNIDine 0.1 MG TAB PO SCH ×4 (03:05→20:34)
[2017-02-11] MEDS: Acetaminophen 500 MG TAB PO SCH ×4 (03:06→20:33)
[2017-02-11] MEDS: traMADol HCl 50 MG TAB PO SCH ×4 (03:06→20:33)
[2017-02-11] MEDS: Saccharomyces boulardii 250 MG CAP PO SCH (08:05)
[2017-02-11] MEDS: Famotidine 20 MG TAB PER TUBE SCH ×2 (08:05→20:34)
[2017-02-11] MEDS: Baclofen 10 MG TAB PO SCH ×2 (08:05→20:34)
[2017-02-11] MEDS: Senokot S 8.6-50 MG TAB PO SCH ×2 (08:05→20:33)
[2017-02-11] MEDS: Amantadine HCl 100 mg Capsule PO SCH ×2 (08:05→20:33)
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
[2017-02-11] MEDS: Enoxaparin Sodium 40 MG/0.4 ML SYRINGE SC SCH (20:34)
[2017-02-12] MEDS: traMADol HCl 50 MG TAB PO SCH ×2 (03:54→08:13)
[2017-02-12] MEDS: cloNIDine 0.1 MG TAB PO SCH ×2 (03:55→08:14)
[2017-02-12] MEDS: Acetaminophen 500 MG TAB PO SCH ×2 (03:56→08:14)
[2017-02-12 05:21] LABS: #Basophils 0.1 thou/uL (0.0-0.2); #Eosinphils 0.1 thou/uL (0.0-0.7); #Lymphocytes 1.8 thou/uL (1.20-3.40); #Monocytes 0.7 thou/uL (0.11-0.59); #Neutrophils 4.1 thou/uL (1.40-6.50); %Basophils 0.9 % (0.0-1.0); %Eosinophils 1.6 % (0.0-10.0); %Lymphocytes 26.5 % (21.0-51.0); Hematocrit 41.3 % (42.0-52.0); Mean Platelet Volume 8.5 fL (7.4-10.4); Red Blood Cell (RBC) Count 4.12 mill/uL (4.70-6.10); White Blood Cell (WBC) Count 6.7 thou/uL (4.8-10.8)
[2017-02-12 05:37] LABS: Anion Gap 14 mmol/L (10-20); BUN (Urea Nitrogen) 14 mg/dL (8.9-20.6); Calc. Creatinine Clearance 198 mL/min (70-130); Calcium 9.7 mg/dL (7.8-10.44); Carbon Dioxide 25 mmol/L (22-29); Chloride 101 mmol/L (98-107); Estimated GFR-MDRD Greater than 90
[2017-02-12] MEDS: Famotidine 20 MG TAB PER TUBE SCH (08:13)
[2017-02-12] MEDS: Senokot S 8.6-50 MG TAB PO SCH (08:13)
[2017-02-12] MEDS: Baclofen 10 MG TAB PO SCH (08:14)
[2017-02-12] MEDS: Amantadine HCl 100 mg Capsule PO SCH (08:14)
[2017-02-12] MEDS: Saccharomyces boulardii 250 MG CAP PO SCH (08:14)
[2017-02-12 12:25] VITALS: BP 152/97; TEMP 99.2
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
== END 2017-02-12 12:30 | DRG 4 ==
LOC: EDBD 19:50 → ERS 19:50 → CCU 21:32 → IMCU/EMU 12-24 18:25 → CCU 12-26 11:11 → SURG A 12-31 14:52
PROVIDERS: ADMIT Specialist; ATTEND Specialist
PROC: 5A1955Z Respiratory Ventilation, Greater than 96 Consecutive Hours (ICD-10-PCS; principal; 2016-12-13)
PROC: 02H633Z Insertion of Infusion Device into Right Atrium, Percutaneous Approach (ICD-10-PCS; 2016-12-13)
PROC: 0W9900Z Drainage of Right Pleural Cavity with Drainage Device, Open Approach (ICD-10-PCS; 2016-12-13)
PROC: 4A103BD Monitoring of Intracranial Pressure, Percutaneous Approach (ICD-10-PCS; 2016-12-14)
PROC: 0B113F4 Bypass Trachea to Cutaneous with Tracheostomy Device, Percutaneous Approach (ICD-10-PCS; 2016-12-20)
PROC: 0DH63UZ Insertion of Feeding Device into Stomach, Percutaneous Approach (ICD-10-PCS; 2016-12-20)
PROC: 0B9J8ZX Drainage of Left Lower Lung Lobe, Via Natural or Artificial Opening Endoscopic, Diagnostic (ICD-10-PCS; 2016-12-25)
PROC: 0B9C8ZX Drainage of Right Upper Lung Lobe, Via Natural or Artificial Opening Endoscopic, Diagnostic (ICD-10-PCS; 2016-12-25)
PROC: 0B9G8ZX Drainage of Left Upper Lung Lobe, Via Natural or Artificial Opening Endoscopic, Diagnostic (ICD-10-PCS; 2016-12-25)
PROC: 0B9F8ZX Drainage of Right Lower Lung Lobe, Via Natural or Artificial Opening Endoscopic, Diagnostic (ICD-10-PCS; 2016-12-25)
DX: S06.1X9A Traumatic cerebral edema with loss of consciousness of unspecified duration, initial encounter (principal); J69.0 Pneumonitis due to inhalation of food and vomit; J15.1 Pneumonia due to Pseudomonas; S27.0XXA Traumatic pneumothorax, initial encounter; J15.6 Pneumonia due to other Gram-negative bacteria; S32.422A Displaced fracture of posterior wall of left acetabulum, initial encounter for closed fracture; J96.00 Acute respiratory failure, unspecified whether with hypoxia or hypercapnia; E87.0 Hyperosmolality and hypernatremia; S22.41XA Multiple fractures of ribs, right side, initial encounter for closed fracture; E87.2 Acidosis; S27.321A Contusion of lung, unilateral, initial encounter; E83.39 Other disorders of phosphorus metabolism; R40.2432 Glasgow coma scale score 3-8, at arrival to emergency department; V49.59XA Passenger injured in collision with other motor vehicles in traffic accident, initial encounter; S41.112A Laceration without foreign body of left upper arm, initial encounter; S91.312A Laceration without foreign body, left foot, initial encounter; S00.412A Abrasion of left ear, initial encounter; S00.81XA Abrasion of other part of head, initial encounter; S40.212A Abrasion of left shoulder, initial encounter; E83.51 Hypocalcemia; R00.0 Tachycardia, unspecified
CPT/HCPCS: 32551; 36415; 36416; 36556; 51702; 70450; 71010; 71260; 72125; 72170; 74177; 74230; 80048; 80053; 81003; 81015; 82150; 82533; 82805; 83735; 83880; 83930; 84100; 84295; 85007; 85025; 85027; 85610; 85730; 86850; 86900; 86901; 87040; 87070; 87077; 87086; 87186; 87205; 87324; 87449; 89220; 90471; 93005; 93970; 94002; 94003; 94640; 96365; 99292; A4216; A4218; C1751; G0390; G8978-GP-CN; G8979-GP-CM; G8981-GP-CN; G8982-GP-CM; G8987-GO-CN; G8988-GO-CM; G8996-GN-CI; G8996-GN-CJ; G8997-GN-CI; G9162-GN-CN; G9163-GN-CM; J0131; J0360; J0692; J0696; J1650; J1940; J1956; J2001; J2060; J2185; J2250; J2270; J2405; J2704; J2997; J3010; J3475; J7050; J7620; P9045; S0028